=== PATIENT | female | born 1945 | race Caucasian/White ===

== ENCOUNTER 2016-03-18 09:20 | Outpatient (CLI) | payer OTHER, MEDICARE | END 2016-03-18 09:21 | disposition home or self-care (01) | DX: R11.2 Nausea with vomiting, unspecified (principal); Z99.2 Dependence on renal dialysis ==

== ENCOUNTER 2016-08-16 13:58 | Outpatient (CLI) | payer OTHER, MEDICARE | END 2016-08-16 13:59 | disposition home or self-care (01) | LOC: DI 13:58 | PROVIDERS: ATTEND Internal Medicine | DX: I48.2 Chronic atrial fibrillation (principal); I51.7 Cardiomegaly; I34.0 Nonrheumatic mitral (valve) insufficiency | CPT/HCPCS: 93306 ==

== ENCOUNTER 2016-10-24 12:57 | Outpatient (CLI) | payer OTHER, MEDICARE | END 2016-10-24 12:58 | disposition home or self-care (01) | LOC: LAB 12:57 | PROVIDERS: ATTEND Internal Medicine | DX: I48.91 Unspecified atrial fibrillation (principal) | CPT/HCPCS: 85610 ==

== ENCOUNTER 2016-10-31 11:31 | Outpatient (CLI) | payer OTHER, MEDICARE | END 2016-10-31 11:32 | disposition home or self-care (01) | LOC: LAB 11:31 | PROVIDERS: ATTEND Internal Medicine | DX: Z79.01 Long term (current) use of anticoagulants (principal) | CPT/HCPCS: 85610 ==

== ENCOUNTER 2016-11-07 11:39 | Outpatient (CLI) | payer OTHER, MEDICARE | END 2016-11-07 11:40 | disposition home or self-care (01) | LOC: LAB 11:39 | PROVIDERS: ATTEND Internal Medicine | DX: Z79.01 Long term (current) use of anticoagulants (principal) | CPT/HCPCS: 85610 ==

== ENCOUNTER 2016-11-15 09:55 | Outpatient (CLI) | payer OTHER, MEDICARE | END 2016-11-15 09:56 | disposition home or self-care (01) | LOC: LAB 09:55 | PROVIDERS: ATTEND Internal Medicine | DX: Z79.01 Long term (current) use of anticoagulants (principal) | CPT/HCPCS: 85610 ==

== ENCOUNTER 2016-12-13 09:55 | Outpatient (CLI) | payer OTHER, MEDICARE | END 2016-12-13 09:56 | disposition home or self-care (01) | LOC: LAB 09:55 | PROVIDERS: ATTEND Internal Medicine | DX: Z79.01 Long term (current) use of anticoagulants (principal) | CPT/HCPCS: 85610 ==

== ENCOUNTER 2016-12-27 11:54 | Outpatient (CLI) | payer OTHER, MEDICARE | END 2016-12-27 11:55 | disposition home or self-care (01) | LOC: LAB 11:54 | PROVIDERS: ATTEND Internal Medicine | DX: Z79.01 Long term (current) use of anticoagulants (principal) | CPT/HCPCS: 85610 ==

== ENCOUNTER 2017-01-24 12:17 | Outpatient (CLI) | payer MEDICARE, OTHER | END 2017-01-24 12:18 | disposition home or self-care (01) | LOC: LAB 12:17 | PROVIDERS: ATTEND Internal Medicine | DX: Z79.01 Long term (current) use of anticoagulants (principal) | CPT/HCPCS: 85610 ==

== ENCOUNTER 2017-01-31 11:21 | Outpatient (CLI) | payer OTHER, MEDICARE | END 2017-01-31 11:22 | disposition home or self-care (01) | LOC: LAB 11:21 | PROVIDERS: ATTEND Internal Medicine | DX: Z79.01 Long term (current) use of anticoagulants (principal) | CPT/HCPCS: 85610 ==

== ENCOUNTER 2017-02-07 09:54 | Outpatient (CLI) | payer OTHER, MEDICARE | END 2017-02-07 09:55 | disposition home or self-care (01) | LOC: LAB 09:54 | PROVIDERS: ATTEND Internal Medicine | DX: Z79.01 Long term (current) use of anticoagulants (principal) | CPT/HCPCS: 85610 ==

== ENCOUNTER 2017-02-14 10:48 | Outpatient (CLI) | payer OTHER, MEDICARE | END 2017-02-14 10:49 | disposition home or self-care (01) | LOC: LAB 10:48 | PROVIDERS: ATTEND Internal Medicine | DX: Z79.01 Long term (current) use of anticoagulants (principal) | CPT/HCPCS: 85610 ==

== ENCOUNTER 2017-03-15 08:22 | Outpatient (CLI) | payer MEDICARE, OTHER | END 2017-03-15 08:23 | disposition home or self-care (01) | LOC: LAB 08:22 | PROVIDERS: ATTEND Internal Medicine | DX: Z79.01 Long term (current) use of anticoagulants (principal) | CPT/HCPCS: 85610 ==

== ENCOUNTER 2017-03-22 08:22 | Outpatient (CLI) | payer MEDICARE, OTHER | END 2017-03-22 08:23 | disposition home or self-care (01) | LOC: LAB 08:22 | PROVIDERS: ATTEND Internal Medicine | DX: Z79.01 Long term (current) use of anticoagulants (principal) | CPT/HCPCS: 85610 ==

== ENCOUNTER 2017-03-29 08:16 | Outpatient (CLI) | payer MEDICARE, OTHER | END 2017-03-29 08:17 | disposition home or self-care (01) | LOC: LAB 08:16 | PROVIDERS: ATTEND Internal Medicine | DX: Z79.01 Long term (current) use of anticoagulants (principal) | CPT/HCPCS: 85610 ==

== ENCOUNTER 2017-04-28 07:48 | Outpatient (CLI) | payer MEDICARE, OTHER | END 2017-04-28 07:49 | disposition home or self-care (01) | LOC: LAB 07:48 | PROVIDERS: ATTEND Internal Medicine | DX: Z79.01 Long term (current) use of anticoagulants (principal); I48.91 Unspecified atrial fibrillation | CPT/HCPCS: 85610 ==

== ENCOUNTER 2017-05-25 11:31 | Outpatient (CLI) | payer MEDICARE, OTHER ==
[2017-05-25 12:06] LABS: PT - PROTHROMBIN TIME 55.5 secs (9.9-12.6)
[2017-05-25 12:14] LABS: INR 5.2 (0.8-1.2)
== END 2017-05-25 11:32 | disposition home or self-care (01) ==
LOC: LAB 11:31
PROVIDERS: ATTEND Internal Medicine
DX: Z79.01 Long term (current) use of anticoagulants (principal)
CPT/HCPCS: 36415; 85610

== ENCOUNTER 2017-06-01 15:52 | Outpatient (CLI) | payer MEDICARE, OTHER | END 2017-06-01 15:53 | disposition home or self-care (01) | LOC: LAB 15:52 | PROVIDERS: ATTEND Internal Medicine | DX: Z79.01 Long term (current) use of anticoagulants (principal) | CPT/HCPCS: 85610 ==

== ENCOUNTER 2017-06-07 11:03 | Outpatient (CLI) | payer MEDICARE, OTHER | END 2017-06-07 11:04 | disposition home or self-care (01) | LOC: LAB 11:03 | PROVIDERS: ATTEND Internal Medicine | DX: Z79.01 Long term (current) use of anticoagulants (principal) | CPT/HCPCS: 85610 ==

== ENCOUNTER 2017-06-21 14:37 | Outpatient (CLI) | payer MEDICARE, OTHER | END 2017-06-21 14:38 | disposition home or self-care (01) | LOC: LAB 14:37 | PROVIDERS: ATTEND Internal Medicine | DX: Z79.01 Long term (current) use of anticoagulants (principal) | CPT/HCPCS: 85610 ==

== ENCOUNTER 2017-07-06 13:38 | Outpatient (CLI) | payer MEDICARE, OTHER | END 2017-07-06 13:39 | disposition home or self-care (01) | LOC: LAB 13:38 | PROVIDERS: ATTEND Internal Medicine | DX: Z79.01 Long term (current) use of anticoagulants (principal) | CPT/HCPCS: 85610 ==

== ENCOUNTER 2017-07-20 10:54 | Outpatient (CLI) | payer MEDICARE, OTHER | END 2017-07-20 10:55 | disposition home or self-care (01) | LOC: LAB 10:54 | PROVIDERS: ATTEND Internal Medicine | DX: Z79.01 Long term (current) use of anticoagulants (principal) | CPT/HCPCS: 85610 ==

== ENCOUNTER 2017-08-02 08:37 | Outpatient (CLI) | payer MEDICARE, OTHER ==
[2017-08-02 09:38] LABS: INR 1.6 (0.8-1.2); PT - PROTHROMBIN TIME 17.6 secs (9.9-12.6)
[2017-08-02 11:53] LABS: ALBUMIN 3.4 g/dL (3.2-5.5); ALBUMIN/GLOBULIN RATIO 1.2 (1.0-2.2); ALKALINE PHOSPHATASE 71 IU/L (42-121); ALT ALANINE AMINOTRANSFERASE 24 IU/L (10-60); AST ASPARTATE AMINOTRANSFERASE 26 IU/L (10-42); BILIRUBIN,TOTAL 0.6 mg/dL (0.2-1.0); BUN - BLOOD UREA NITROGEN 60 mg/dL (6-20); CALCIUM 8.4 mg/dL (8.5-10.3); CARBON DIOXIDE - CO2 21 mmol/L (21-32); CHLORIDE 104 mmol/L (101-111); CHOL/HDL RATIO 2.2 (<4.4); CHOLESTEROL 162 mg/dL; CREATININE 9.8 mg/dL (0.4-1.0); GFR - MDRD 4 (>89); GLUCOSE 95 mg/dL (70-100); HDL CHOLESTEROL 73 mg/dL; LDL CHOLESTEROL,CALCULATED 71 mg/dL; SODIUM 137 mmol/L (135-145); TOTAL PROTEIN 6.3 g/dL (6.7-8.2); VLDL CHOLESTEROL 18 mg/dL
== END 2017-08-02 08:38 | disposition home or self-care (01) ==
LOC: LAB 08:37
PROVIDERS: ATTEND Physician Assistant
DX: N19 Unspecified kidney failure (principal); I10 Essential (primary) hypertension; R60.0 Localized edema; E78.5 Hyperlipidemia, unspecified; Z79.01 Long term (current) use of anticoagulants; Z13.220 Encounter for screening for lipoid disorders
CPT/HCPCS: 36415; 80053; 80061; 83721; 83880; 85610

== ENCOUNTER 2017-08-10 02:21 | Emergency (ER) | payer MEDICARE, OTHER ==
[2017-08-10] MEDS ORDERED: TRANEXAMIC ACID 1,000 MG/10 ML VIAL NAS STA (02:33)
--- NOTE | 2017-08-10 02:37 | ED Physician Documentation ---
History of Present Illness - Stated complaint Stated Complaint: NOSE BLEED - History obtained from History obtained from: Patient, Family - History of Present Illness Timing: How many hours ago (1) Pain level max: 0 Pain level now: 0 - Additonal information Additional information: Patient is a 72-year-old female who takes warfarin for atrial fibrillation and is also on hemodialysis who presents to the emergency department with a nosebleed for the past hour. Bleeding out of the right nare. She states that she has daily nosebleeds and that this is not uncommon for her, but this one is worse than usual. 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 - Present Medications Home Medications: Ambulatory Orders Medication Instructions Recorded Confirmed Albuterol Sulfate [Ventolin Hfa] 2 puffs INH Q4-6H PRN 07/17/13 03/21/14 Atenolol [Tenormin] 25 mg PO BID 07/17/13 03/21/14 Calcitriol [Rocaltrol] 0.5 mcg PO DAILY 07/17/13 03/21/14 Ferrous Fumarate 324 mg PO BID 07/17/13 03/21/14 Fexofenadine HCl [Yolanda Allergy] 180 mg PO DAILY PRN 07/17/13 03/21/14 Fluticasone [Flonase] 1 sprays JODIE DAILY PRN 07/17/13 03/21/14 Hydralazine HCl 25 mg PO TID 07/17/13 03/21/14 Pravastatin Sodium 40 mg PO HS 07/17/13 03/21/14 - Allergies Allergies/Adverse Reactions: Allergies Allergy/AdvReac Type Severity Reaction Status Date / Time Penicillins Allergy Rash Verified 09/20/13 09:19 PD ED PE NORMAL - Vitals Vital signs reviewed: Yes - General General: Alert and oriented X 3, No acute distress - HEENT HEENT: Moist mucous membranes, Other (epistaxis to the R nare. unable to visualize source of bleeding.) - Neck Neck: Supple, no meningeal sign - Derm Derm: Warm and dry - Neuro Neuro: Alert and oriented X 3 Results - Vitals Vitals: Vital Signs - 24 hr 08/10/17 08/10/17 08/10/17 02:30 03:00 03:26 Temperature 36.7 C Heart Rate 88 Respiratory 18 20 Rate Blood Pressure 198/99 H O2 Saturation 10 L 100 08/10/17 08/10/17 04:14 04:38 Temperature Heart Rate 71 71 Respiratory 17 16 Rate Blood Pressure 200/97 H 197/94 H O2 Saturation 100 99 Oxygen O2 Source Room air - Labs Labs: Laboratory Tests 08/10/17 02:40 Whole Blood INR 3.0 H Procedures - Epistaxis Site: Right, Cannot determine Preparation: Clots removed, Afrin, Lidocaine, Clamp / pressure applied Treatment: Anterior rhinorocket Other: Observed - no bleeding, Pt tolerated well, O2 sat WNL, Antibiotics prescribed PD MEDICAL DECISION MAKING - ED course Complexity details: reviewed results, re-evaluated patient, considered differential, d/w patient, d/w family ED course: Patient is a 72-year-old female with a right nare nosebleed tonight. Initially Afrin and tranexamic acid were utilized, however she continued to bleed, therefore lidocaine with epinephrine and followed by an anterior Rhino Rocket was used. Bleeding resolved. INR is supratherapeutic and will have her hold her warfarin for the next 24 hours. We will have her follow-up with her doctor in 24 hours to remove the nasal packing. Patient counseled regarding signs and symptoms for which I believe and urgent re-evaluation would be necessary. Patient with good understanding of and agreement to plan and is comfortable going home at this time This document was made in part using voice recognition software. While efforts are made to proofread this document, sound alike and grammatical errors may occur. Departure - Departure Disposition: 01 Home, Self Care Clinical Impression: Epistaxis, Supratherapeutic INR Condition: Good Instructions: ED Nosebleed Follow-Up: oJse Deleon MD [Primary Care Provider] - Tomorrow Comments: Hold your warfarin today. Follow up with Dr. Deleon's office on Monday to have your packing removed or return here.
[2017-08-10] MEDS ORDERED: OXYMETAZOLINE NASAL SPRAY NAS STA (02:45)
[2017-08-10] MEDS ORDERED: LIDOCAINE 1%-EPI 1:100000 20 ML MDV TOP ONE (03:06)
[2017-08-10] MEDS ORDERED: LIDOCAINE 1%-EPI 1:100000 30 ML MDV ONE (03:20)
[2017-08-10] MEDS ORDERED: HYDROcod/ACETAM 5/325 MG TABLET PO STA (03:39)
[2017-08-10] MEDS ORDERED: hydrALAZINE 25 MG TABLET PO STA (04:12)
[2017-08-10 05:21] VITALS: BP 186/80
== END 2017-08-10 05:35 | disposition home or self-care (01) ==
LOC: ED 02:21
DX: R04.0 Epistaxis (principal); I48.91 Unspecified atrial fibrillation; Z99.2 Dependence on renal dialysis; Z79.01 Long term (current) use of anticoagulants; R79.1 Abnormal coagulation profile; I10 Essential (primary) hypertension
CPT/HCPCS: 30901; 85610; 99283; A9270

== ENCOUNTER 2017-08-21 15:26 | Outpatient (CLI) | payer MEDICARE, OTHER ==
--- NOTE | 2017-08-23 09:19 | DEXA Report ---
Procedure Date: 08/21/2017 Accession Number: [id number] / [id number] Procedure: DEX - Dexa Spine and/or Hip CPT Code: FULL RESULT: CLINICAL INDICATION: ENCOUNTER FOR SCREENING FOR OSTEOPOROSIS TECHNIQUE: Dual energy x-ray absorptiometry (DXA) was performed on a [email or web address] System. Regions measured are the AP Spine, femoral neck, and if needed forearm. COMPARISON: None. In accordance with the International Society for Clinical Densitometry (ISCD) guidelines, data from previous exams may be reanalyzed using current recommendations and techniques. This is done to allow a more accurate basis for comparison with the current study. FINDINGS: The data for the lumbar spine is as follows: BMD (g/cm/cm) T-SCORE Z-SCORE REGION L1 0.810 -2.7 -0.7 L2 0.755 -3.7 -1.8 L3 0.914 -2.4 -0.4 L4 0.903 -2.5 -0.5 TOTAL 0.851 -2.7 -0.8 NOTE: All evaluable vertebrae are used for classification The data for the hip is as follows: BMD (g/cm/cm) T-SCORE Z-SCORE REGION Neck 0.635 -2.9 -0.9 TOTAL 0.589 -3.3 -1.5 NOTE: The femoral neck or total proximal femur, whichever is lowest, is used for classification. IMPRESSION: THE WHO CLASSIFICATION BASED ON THE INTERNATIONAL REFERENCE STANDARD IS OSTEOPOROSIS. THE FRACTURE RISK IS HIGH. RECOMMENDATION: Patients with diagnosis of osteoporosis or osteopenia should have regular bone mineral density assessment. For those eligible for Medicare, routine testing is allowed once every 2 years. Testing frequency can be increased for patients who have rapidly progressing disease or for those who are receiving medical therapy to restore bone mass. COMMENT: World Health Organization (WHO) definitions for osteoporosis and osteopenia: NORMAL BMD: T-score at -1.0 or higher, fracture risk is low OSTEOPENIA BMD: T-score between -1.0 and -2.5, fracture risk is increased. OSTEOPOROSIS BMD: T-score at -2.5 or lower, fracture risk is high. National Osteoporosis Foundation recommends: 1. Obtain adequate dietary calcium (at least 1200 mg per day) and vitamin D (400-800 international units per day). 2. Participate, as appropriate, in regular weightbearing and muscle-strengthening exercise. 3. Avoid tobacco use and reduce alcohol and caffeine intake. 4. For more detailed information see the website at www.NOF.org.
== END 2017-08-21 15:27 | disposition home or self-care (01) ==
LOC: DI 15:26
PROVIDERS: ATTEND Physician Assistant
DX: Z13.820 Encounter for screening for osteoporosis (principal); M81.0 Age-related osteoporosis without current pathological fracture; Z78.0 Asymptomatic menopausal state
CPT/HCPCS: 77080

== ENCOUNTER 2017-08-21 15:27 | Outpatient (CLI) | payer MEDICARE, OTHER ==
--- NOTE | 2017-08-23 13:22 | Mammography Report ---
Procedure Date: 08/21/2017 Accession Number: [id number] / [id number] Procedure: ANTONIO - Screening Mammo Dig Bilat CPT Code: FULL RESULT: EXAM: Screening Mammo Dig Bilat DATE: 08/21/2017 4:30 PM CLINICAL HISTORY: 72-year-old with history of benign left breast biopsy for screening COMPARISON: 06/22/2015, 05/20/2014, 05/08/2013, 03/22/2012, 02/12/2011, 01/20/2010 TECHNIQUE: Bilateral CC and MLO views were obtained. FINDINGS: Breasts demonstrate scattered fibroglandular densities bilaterally. Coarse and punctate, typically benign calcifications are present. Postbiopsy changes in the left upper outer quadrant are stable. No suspicious masses, clustered microcalcifications, or regions of architectural distortion are identified. IMPRESSION: Benign findings RECOMMENDATION: Routine annual screening unless otherwise clinically indicated. BIRADS CATEGORY 2: Benign findings STANDARD QUALIFYING STATEMENTS: 1. This examination was reviewed with the aid of Computer-Aided Detection (CAD). 2. A negative or benign imaging report should not delay biopsy if clinically suspicious findings are present. Consider surgical consultation if warrented. More than 5% of cancers are not identified by imaging. 3. Dense breasts may obscure an underlying neoplasm.
== END 2017-08-21 15:28 | disposition home or self-care (01) ==
LOC: DI 15:27
PROVIDERS: ATTEND Physician Assistant
DX: Z12.31 Encounter for screening mammogram for malignant neoplasm of breast (principal)
CPT/HCPCS: 77067

== ENCOUNTER 2017-08-30 12:30 | Outpatient (CLI) | payer MEDICARE, OTHER | END 2017-08-30 12:31 | disposition home or self-care (01) | LOC: LAB 12:30 | PROVIDERS: ATTEND Internal Medicine | DX: Z79.01 Long term (current) use of anticoagulants (principal) | CPT/HCPCS: 85610 ==

== ENCOUNTER 2017-09-06 11:01 | Outpatient (CLI) | payer MEDICARE, OTHER | END 2017-09-06 11:02 | disposition home or self-care (01) | LOC: LAB 11:01 | PROVIDERS: ATTEND Internal Medicine | DX: Z79.01 Long term (current) use of anticoagulants (principal) | CPT/HCPCS: 85610 ==

== ENCOUNTER 2017-09-20 12:32 | Outpatient (CLI) | payer MEDICARE, OTHER | END 2017-09-20 12:33 | disposition home or self-care (01) | LOC: LAB 12:32 | PROVIDERS: ATTEND Internal Medicine | DX: Z79.01 Long term (current) use of anticoagulants (principal) | CPT/HCPCS: 85610 ==

== ENCOUNTER 2017-10-03 15:07 | Outpatient (CLI) | payer MEDICARE, OTHER | END 2017-10-03 15:08 | disposition home or self-care (01) | LOC: LAB 15:07 | PROVIDERS: ATTEND Internal Medicine | DX: Z79.01 Long term (current) use of anticoagulants (principal) | CPT/HCPCS: 85610 ==

== ENCOUNTER 2017-10-26 13:24 | Outpatient (CLI) | payer MEDICARE, OTHER | END 2017-10-26 13:25 | disposition home or self-care (01) | LOC: LAB 13:24 | PROVIDERS: ATTEND Internal Medicine | DX: Z79.01 Long term (current) use of anticoagulants (principal) | CPT/HCPCS: 85610 ==

== ENCOUNTER 2017-11-22 12:04 | Outpatient (CLI) | payer MEDICARE, OTHER | END 2017-11-22 12:05 | disposition home or self-care (01) | LOC: LAB 12:04 | PROVIDERS: ATTEND Internal Medicine | DX: Z79.01 Long term (current) use of anticoagulants (principal) | CPT/HCPCS: 85610 ==

== ENCOUNTER 2017-12-07 11:10 | Outpatient (CLI) | payer MEDICARE, OTHER | END 2017-12-07 11:11 | disposition home or self-care (01) | LOC: LAB 11:10 | PROVIDERS: ATTEND Internal Medicine | DX: Z79.01 Long term (current) use of anticoagulants (principal) | CPT/HCPCS: 85610 ==

== ENCOUNTER 2017-12-09 12:06 | Outpatient (CLI) | payer MEDICARE, OTHER ==
--- NOTE | 2017-12-09 14:28 | XRAY Report ---
Reason: COUGH Procedure Date: 12/09/2017 Accession Number: [id number] / [id number] Procedure: XR - Chest 2 View X-Ray CPT Code: 12987 FULL RESULT: EXAM: CHEST RADIOGRAPHY EXAM DATE: 12/09/2017 12:23 PM. CLINICAL HISTORY: COUGH. COMPARISON: CHEST 2 VIEW PA/LAT 08/17/2015 4:15 PM. TECHNIQUE: 2 views. FINDINGS: Lungs/Pleura: No focal opacities evident. No pleural effusion. No pneumothorax. Normal volumes. Mediastinum: Heart and mediastinal contours are unremarkable. Mild aortic calcification. Other: None. IMPRESSION: Normal 2-view chest radiography. RADIA
== END 2017-12-09 12:07 | disposition home or self-care (01) ==
LOC: DI 12:06
PROVIDERS: ATTEND Internal Medicine
DX: R05 Cough (principal)
CPT/HCPCS: 71046

== ENCOUNTER 2017-12-21 11:00 | Outpatient (CLI) | payer MEDICARE, OTHER | END 2017-12-21 11:01 | disposition home or self-care (01) | LOC: LAB 11:00 | PROVIDERS: ATTEND Internal Medicine | DX: Z79.01 Long term (current) use of anticoagulants (principal) | CPT/HCPCS: 85610 ==

== ENCOUNTER 2018-01-04 14:17 | Outpatient (CLI) | payer MEDICARE, OTHER | END 2018-01-04 14:18 | disposition home or self-care (01) | LOC: LAB 14:17 | PROVIDERS: ATTEND Internal Medicine | DX: Z79.01 Long term (current) use of anticoagulants (principal) | CPT/HCPCS: 85610 ==

== ENCOUNTER 2018-01-10 12:08 | Outpatient (CLI) | payer MEDICARE, OTHER | END 2018-01-10 12:09 | disposition home or self-care (01) | LOC: LAB 12:08 | PROVIDERS: ATTEND Internal Medicine | DX: Z79.01 Long term (current) use of anticoagulants (principal) | CPT/HCPCS: 85610 ==

== ENCOUNTER 2018-01-18 13:24 | Outpatient (CLI) | payer MEDICARE, OTHER ==
[2018-01-18 14:12] LABS: INR 1.6 (0.8-1.2); PT - PROTHROMBIN TIME 17.7 secs (9.9-12.6)
== END 2018-01-18 13:25 | disposition home or self-care (01) ==
LOC: LAB 13:24
PROVIDERS: ATTEND Internal Medicine
DX: Z79.01 Long term (current) use of anticoagulants (principal)
CPT/HCPCS: 36415; 85610

== ENCOUNTER 2018-01-30 13:46 | Outpatient (CLI) | payer MEDICARE, OTHER | END 2018-01-30 13:47 | disposition home or self-care (01) | LOC: LAB 13:46 | PROVIDERS: ATTEND Internal Medicine | DX: Z79.01 Long term (current) use of anticoagulants (principal) | CPT/HCPCS: 85610 ==

== ENCOUNTER 2018-02-14 13:06 | Outpatient (CLI) | payer MEDICARE, OTHER | END 2018-02-14 13:07 | disposition home or self-care (01) | LOC: LAB 13:06 | PROVIDERS: ATTEND Internal Medicine | DX: Z79.01 Long term (current) use of anticoagulants (principal) | CPT/HCPCS: 85610 ==

== ENCOUNTER 2018-03-01 13:06 | Outpatient (CLI) | payer MEDICARE, OTHER | END 2018-03-01 13:07 | disposition home or self-care (01) | LOC: LAB 13:06 | PROVIDERS: ATTEND Internal Medicine | DX: Z79.01 Long term (current) use of anticoagulants (principal) | CPT/HCPCS: 85610 ==

== ENCOUNTER 2018-03-14 12:12 | Outpatient (CLI) | payer MEDICARE, OTHER | END 2018-03-14 12:13 | disposition home or self-care (01) | LOC: LAB 12:12 | PROVIDERS: ATTEND Internal Medicine | DX: Z79.01 Long term (current) use of anticoagulants (principal) | CPT/HCPCS: 85610 ==

== ENCOUNTER 2018-03-28 10:08 | Outpatient (CLI) | payer MEDICARE, OTHER | END 2018-03-28 10:09 | disposition home or self-care (01) | LOC: LAB 10:08 | PROVIDERS: ATTEND Internal Medicine | DX: Z79.01 Long term (current) use of anticoagulants (principal) | CPT/HCPCS: 85610 ==

== ENCOUNTER 2018-03-31 09:49 | Outpatient (CLI) | payer MEDICARE, OTHER ==
--- NOTE | 2018-04-01 14:12 | CT Report ---
Reason: ACUTE RHINOSINUSITIS,NASAL OBSTRUCTION Procedure Date: 03/31/2018 Accession Number: [id number] / [id number] Procedure: CT - Sinuses CPT Code: FULL RESULT: EXAM: CT SINUS WITHOUT CONTRAST COMPARISON: 08/03/2015. CLINICAL HISTORY: Acute rhinosinusitis, nasal obstruction. TECHNIQUE: Axial images were acquired of the face and sinuses without intravenous contrast. Coronal and Sagittal reconstructions are created from source data. In accordance with CT protocol optimization, one or more of the following dose reduction techniques were utilized for this exam: automated exposure control, adjustment of mA and/or KV based on patient size, or use of iterative reconstructive technique. FINDINGS: Visualized intracranial content shows no acute abnormality. There is volume loss. Right mastoid is clear. Right middle ear is clear. Left middle ear is clear. There are a few opacified left mastoid air cells inferiorly, may reflect upper respiratory tract infection. Clinical correlation suggested. No nasopharyngeal mass identified. Temporomandibular joints are normally located. Zygomatic arches are intact. Air-fluid levels present in the left maxillary sinus (3, 47). Clinical correlation with acute left maxillary sinusitis suggested. Rightward bowing of the bony nasal septum is noted. Clinical correlation with decreased right-sided nasal airflow suggested. Nasofrontal ducts well demonstrated (3, 64). No evidence of acute or chronic sphenoid sinusitis. Nasofrontal ducts are open and the frontal sinuses are well aerated. A few scattered opacified ethmoid air cells are noted. Orbital floors are intact. Orbital roofs are intact. Medial and lateral orbital mcgraw are intact. Maxillary sinus infundibula are open (8, 43; 44). IMPRESSION: Rightward bowing of the bony nasal septum may account for perception of nasal obstruction. There is fluid in the left maxillary sinus and left mastoid air cells. Clinical correlation with upper respiratory tract infection suggested.
== END 2018-03-31 09:50 | disposition home or self-care (01) ==
LOC: DI 09:49
PROVIDERS: ATTEND Otolaryngology
DX: J01.90 Acute sinusitis, unspecified (principal); J34.89 Other specified disorders of nose and nasal sinuses
CPT/HCPCS: 70486

== ENCOUNTER 2018-04-18 08:00 | Outpatient (CLI) | payer MEDICARE, OTHER ==
[2018-04-18 12:21] LABS: BASOPHILS # (AUTO) 0.1 10^3/uL (0.0-0.1); BASOPHILS % (AUTO) 1.4 %; EOSINOPHILS # (AUTO) 0.1 10^3/uL (0.0-0.7); HGB - HEMOGLOBIN 8.1 g/dL (12.0-16.0); LYMPHOCYTES # (AUTO) 0.7 10^3/uL (1.5-3.5); LYMPHOCYTES % (AUTO) 13.2 %; MEAN CORPUSCULAR HEMOGLOBIN 31.7 pg (27.0-31.0); MEAN CORPUSCULAR HGB CONC 33.7 g/dL (32.0-36.0); MEAN CORPUSCULAR VOLUME 94.2 fL (81.0-99.0); MEAN PLATELET VOLUME 10.2 fL (7.9-10.8); MONOCYTES # (AUTO) 0.4 10^3/uL (0.0-1.0); NEUTROPHILS # (AUTO) 4.1 10^3/uL (1.5-6.6); NEUTROPHILS % (AUTO) 76.4 %; PLT - PLATELET COUNT 107 10^3/uL (130-450); RED BLOOD COUNT 2.55 10^6/uL (4.20-5.40); RED CELL DISTRIBUTION WIDTH 14.2 % (12.0-15.0); WHITE BLOOD COUNT 5.4 x10^3/uL (4.8-10.8)
[2018-04-18 12:41] LABS: ALBUMIN/GLOBULIN RATIO 1.2 (1.0-2.2); BILIRUBIN,TOTAL 0.8 mg/dL (0.2-1.0); CALCIUM 8.8 mg/dL (8.5-10.3); TOTAL PROTEIN 5.6 g/dL (6.7-8.2)
[2018-04-18 12:42] LABS: CREATININE 9.8 mg/dL (0.4-1.0)
== END 2018-04-18 23:59 | disposition home or self-care (01) ==
LOC: LAB.R 08:00
PROVIDERS: ATTEND Nurse Practitioner Primary Care
DX: I50.9 Heart failure, unspecified (principal); R05 Cough; N19 Unspecified kidney failure
CPT/HCPCS: 80053; 83880; 85025

== ENCOUNTER 2018-04-23 08:00 | Outpatient (CLI) | payer MEDICARE, OTHER ==
[2018-04-23 15:39] LABS: BASOPHILS % (AUTO) 0.5 %; EOSINOPHILS % (AUTO) 0.3 %; LYMPHOCYTES # (AUTO) 0.4 10^3/uL (1.5-3.5); LYMPHOCYTES % (AUTO) 6.2 %; MEAN CORPUSCULAR HEMOGLOBIN 31.4 pg (27.0-31.0); MEAN CORPUSCULAR HGB CONC 33.2 g/dL (32.0-36.0); MEAN CORPUSCULAR VOLUME 94.4 fL (81.0-99.0); MEAN PLATELET VOLUME 10.4 fL (7.9-10.8); MONOCYTES # (AUTO) 0.4 10^3/uL (0.0-1.0); MONOCYTES % (AUTO) 7.1 %; NEUTROPHILS # (AUTO) 4.9 10^3/uL (1.5-6.6); NEUTROPHILS % (AUTO) 85.9 %; PLT - PLATELET COUNT 117 10^3/uL (130-450); RED BLOOD COUNT 2.13 10^6/uL (4.20-5.40); RED CELL DISTRIBUTION WIDTH 14.4 % (12.0-15.0); WHITE BLOOD COUNT 5.7 x10^3/uL (4.8-10.8)
[2018-04-23 15:40] LABS: PT - PROTHROMBIN TIME 106.9 secs (9.9-12.6)
[2018-04-23 16:01] LABS: ALBUMIN/GLOBULIN RATIO 1.2 (1.0-2.2); BILIRUBIN,TOTAL 0.7 mg/dL (0.2-1.0); CALCIUM 9.1 mg/dL (8.5-10.3); INR 9.8 (0.8-1.2); TOTAL PROTEIN 5.6 g/dL (6.7-8.2)
[2018-04-23 16:02] LABS: CREATININE 11.9 mg/dL (0.4-1.0); HGB - HEMOGLOBIN 6.7 g/dL (12.0-16.0)
== END 2018-04-23 23:59 | disposition home or self-care (01) ==
LOC: LAB.R 08:00
PROVIDERS: ATTEND Nurse Practitioner Primary Care
DX: R10.30 Lower abdominal pain, unspecified (principal); I50.9 Heart failure, unspecified; N19 Unspecified kidney failure; D63.1 Anemia in chronic kidney disease; Z79.01 Long term (current) use of anticoagulants
CPT/HCPCS: 80053; 83690; 83880; 85025; 85610

== ENCOUNTER 2018-04-23 16:38 | Emergency (ER) | payer MEDICARE, OTHER ==
[2018-04-23] MEDS ORDERED: PHYTONADIONE 10 MG/ML AMP SUBQ STA (17:06)
--- NOTE | 2018-04-23 17:08 | ED Physician Documentation ---
PD HPI ABD PAIN - Stated complaint Stated Complaint: ABD SWELLING/SENT BY DOC - Chief complaint Chief Complaint: Abd Pain - History obtained from History obtained from: Patient, Family, Other (ERNESTO Ellis called me [employer] INTERN) - History of Present Illness Timing - onset: Other (This is a 73-year-old woman with atrial fibrillation on warfarin and renal failure who does home peritoneal dialysis who 2 nights ago wa s coughing and developed pain in the left lower abdomen which became more severe during subsequent bouts of coughing over the last day. She was seen in the office today noted to have a hemoglobin drop to 6.1 and an INR of greater than 9 with abdominal wall bruising.) Review of Systems Ten Systems: 10 systems reviewed and negative Constitutional: denies: Fever, Chills Cardiac: denies: Chest pain / pressure, Palpitations Respiratory: denies: Dyspnea, Cough GI: reports: Abdominal Pain. 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 - Present Medications Home Medications: Ambulatory Orders Medication Instructions Recorded Confirmed Calcitriol [Rocaltrol] 0.5 mcg PO DAILY 07/17/13 04/23/18 Fexofenadine HCl [Yolanda Allergy] 180 mg PO DAILY PRN 07/17/13 04/23/18 Fluticasone [Flonase] 1 sprays JODIE DAILY PRN 07/17/13 04/23/18 RX: Albuterol Sulfate [Ventolin 2 puffs INH Q4-6H PRN 07/17/13 04/23/18 Hfa] RX: Hydralazine HCl 25 mg PO TID 07/17/13 04/23/18 RX: Pravastatin Sodium 40 mg PO HS 07/17/13 04/23/18 Doxazosin [Cardura] 4 mg PO DAILY 04/23/18 04/23/18 RX: Metoprolol Succinate 25 mg PO DAILY 04/23/18 04/23/18 - Allergies Allergies/Adverse Reactions: Allergies Allergy/AdvReac Type Severity Reaction Status Date / Time Penicillins Allergy Rash Verified 04/23/18 16:48 PD ED PE NORMAL - Vitals Vital signs reviewed: Yes - General General: Alert and oriented X 3, No acute distress - HEENT HEENT: PERRL, EOMI - Neck Neck: Supple, no meningeal sign, No bony TTP - Cardiac Cardiac: RRR, No murmur - Respiratory Respiratory: No respiratory distress, Clear bilaterally - Abdomen Abdomen: Other (She has lower abdominal wall bruising. The peritoneal dialysis catheter does not have any blood in the tubing. She is quite tender to the low abdomen.) - Back Back: No CVA TTP, No spinal TTP - Derm Derm: Normal color, Warm and dry - Extremities Extremities: No edema, No calf tenderness / cord - Neuro Neuro: Alert and oriented X 3, Normal speech Results - Vitals Vitals: Vital Signs - 24 hr 04/23/18 04/23/18 04/23/18 16:46 17:12 17:30 Temperature 36.4 C L Heart Rate 70 69 76 Respiratory 20 16 16 Rate Blood Pressure 155/62 H 144/64 H 179/79 H O2 Saturation 99 98 98 04/23/18 04/23/18 04/23/18 18:00 18:30 18:42 Temperature 36.7 C 36.7 C Heart Rate 71 72 71 Respiratory 16 18 16 Rate Blood Pressure 180/86 H 190/76 H 166/77 H O2 Saturation 97 98 04/23/18 04/23/18 04/23/18 19:00 19:22 19:30 Temperature 36.4 C L 36.5 C Heart Rate 74 73 72 Respiratory 16 16 17 Rate Blood Pressure 179/79 H 190/76 H 189/94 H O2 Saturation 98 98 04/23/18 04/23/18 04/23/18 19:35 19:49 20:00 Temperature 36.7 C 36.5 C Heart Rate 74 72 72 Respiratory 16 17 16 Rate Blood Pressure 179/79 H 194/79 H 190/88 H O2 Saturation 97 04/23/18 04/23/18 04/23/18 20:06 20:30 20:56 Temperature 36.4 C L 37 C Heart Rate 70 71 71 Respiratory 16 16 16 Rate Blood Pressure 186/94 H 196/83 H 196/83 H O2 Saturation 97 04/23/18 21:28 Temperature Heart Rate 71 Respiratory 17 Rate Blood Pressure 190/77 H O2 Saturation 98 Oxygen O2 Source Room air - Labs Labs: Laboratory Tests 04/23/18 04/23/18 04/23/18 17:05 17:05 17:05 WBC 5.7 RBC 2.06 L Hgb 6.3 L* Hct 19.7 L* MCV 95.6 MCH 30.8 MCHC 32.2 RDW 14.1 Plt Count 117 L MPV 10.0 Neut # (Auto) 4.8 Lymph # (Auto) 0.5 L Piatt # (Auto) 0.3 Eos # (Auto) 0.0 Baso # (Auto) 0.0 Absolute Nucleated RBC 0.00 Nucleated RBC % 0.0 PT 112.3 H INR > 10.0 H* Sodium 136 Potassium 5.1 H Chloride 95 L Carbon Dioxide 27 Anion Gap 14.0 H BUN 60 H Creatinine 12.1 H* Estimated GFR (MDRD) 3 L Glucose 136 H Calcium 9.0 Total Bilirubin 1.0 AST 29 ALT 16 Alkaline Phosphatase 51 Total Protein 5.3 L Albumin 3.0 L Globulin 2.3 Albumin/Globulin Ratio 1.3 Lipase 31 Blood Type Antibody Screen Crossmatch IS Only 04/23/18 04/23/18 04/23/18 17:05 20:55 20:55 WBC RBC Hgb 8.1 L Hct 24.3 L MCV MCH MCHC RDW Plt Count MPV Neut # (Auto) Lymph # (Auto) Piatt # (Auto) Eos # (Auto) Baso # (Auto) Absolute Nucleated RBC Nucleated RBC % PT 38.7 H INR 3.5 H Sodium Potassium Chloride Carbon Dioxide Anion Gap BUN Creatinine Estimated GFR (MDRD) Glucose Calcium Total Bilirubin AST ALT Alkaline Phosphatase Total Protein Albumin Globulin Albumin/Globulin Ratio Lipase Blood Type A POSITIVE Antibody Screen NEGATIVE Crossmatch IS Only See Detail - Rads (name of study) CT A/P Radiology: EMP read contemporaneously (Subacute appearing left rectus abdominis muscle hematoma measuring 75 x 49 x 140 mm.) PD MEDICAL DECISION MAKING - ED course ED course: This is a 73-year-old woman on home peritoneal dialysis who presents with abdominal pain in the left lower quadrant with low H&H and high INR. CT imaging and labs suggest that her INR was high and then developed a spontaneous rectus sheath hematoma which looks subacute on CT. The patient was very against admission or transfer and wanted to go home, as such what we negotiated is that we gave her 2 units of FFP and 2 units of PRBCs here as well as a small dose of vitamin K and then we will recheck her labs and if reassuring she can go home for outpatient follow-up and this was also cleared with her primary care physician, Dr. Deleon by phone. After the administrations of 2 units of FFP and 2 units of packed red cells she had an appropriate incremental increase in her blood counts and a significant improvement in her INR which should continue to go down slightly since she was admitted for vitamin K here. She was advised not to take her warfarin until cleared by her primary care physician. Departure - Departure Disposition: 01 Home, Self Care Clinical Impression: Supratherapeutic INR, Nontraumatic rectus hematoma, Anemia, Peritoneal dialysis catheter in place, Renal failure Condition: Good Record reviewed to determine appropriate education?: Yes Instructions: ED Hematoma Comments: Do not take warfarin until Dr. Deleon says to do so. He would probably want to do labs in the next couple of days to touch base with his office tomorrow. Return anytime if worse. Discharge Date/Time: 04/23/18 21:49
[2018-04-23 17:20] LABS: BASOPHILS % (AUTO) 0.9 %; EOSINOPHILS % (AUTO) 0.1 %; LYMPHOCYTES # (AUTO) 0.5 10^3/uL (1.5-3.5); LYMPHOCYTES % (AUTO) 8.1 %; MEAN CORPUSCULAR HEMOGLOBIN 30.8 pg (27.0-31.0); MEAN CORPUSCULAR HGB CONC 32.2 g/dL (32.0-36.0); MEAN CORPUSCULAR VOLUME 95.6 fL (81.0-99.0); MONOCYTES # (AUTO) 0.3 10^3/uL (0.0-1.0); MONOCYTES % (AUTO) 6.1 %; NEUTROPHILS # (AUTO) 4.8 10^3/uL (1.5-6.6); NEUTROPHILS % (AUTO) 84.8 %; PLT - PLATELET COUNT 117 10^3/uL (130-450); RED BLOOD COUNT 2.06 10^6/uL (4.20-5.40); RED CELL DISTRIBUTION WIDTH 14.1 % (12.0-15.0); WHITE BLOOD COUNT 5.7 x10^3/uL (4.8-10.8)
[2018-04-23 17:23] LABS: PT - PROTHROMBIN TIME 112.3 secs (9.9-12.6)
[2018-04-23 17:26] LABS: HGB - HEMOGLOBIN 6.3 g/dL (12.0-16.0); INR > 10.0 (0.8-1.2)
[2018-04-23 17:36] LABS: ALBUMIN/GLOBULIN RATIO 1.3 (1.0-2.2); CREATININE 12.1 mg/dL (0.4-1.0); TOTAL PROTEIN 5.3 g/dL (6.7-8.2)
--- NOTE | 2018-04-23 18:34 | CT Report ---
Reason: Low abd pain, low Hgb, peritoneal dialysis Procedure Date: 04/23/2018 Accession Number: [id number] / [id number] Procedure: CT - Abdomen/Pelvis W/O CPT Code: FULL RESULT: EXAM: CT ABDOMEN AND PELVIS EXAM DATE: 04/23/2018 06:13 PM. CLINICAL HISTORY: Low abd pain, low Hgb, peritoneal dialysis. COMPARISONS: ABDOMEN/PELVIS W/O 03/18/2016 9:40 AM. TECHNIQUE: Routine helical CT imaging was performed through the abdomen and pelvis. IV contrast: No. Enteric contrast: No. Reconstructions: Coronal and sagittal. In accordance with CT protocol optimization, one or more of the following dose reduction techniques were utilized for this exam: automated exposure control, adjustment of mA and/or KV based on patient size, or use of iterative reconstructive technique. FINDINGS: Lung Bases: Unremarkable. Liver: Normal in size and contour. Gallbladder/Bile Ducts: Unremarkable. Spleen: Lobulated contour but normal in size. Pancreas: Normal in contour. Adrenal Glands: Normal. Kidneys: Kidneys are small in size. There is a hyperdense cyst in the upper pole left kidney measuring 1 cm. No hydronephrosis. Peritoneal Cavity/Bowel: There is a small volume of intraperitoneal free fluid. The intraperitoneal fluid is low density near 10 HU and does not appear hemorrhagic. The bowel is normal in caliber. There is no free air. There is an intramuscular hematoma with a layering hematocrit level within the left rectus abdominis muscle. This hematoma measures 75 x 49 x 140 mm. Most likely subacute. There is a peritoneal dialysis catheter. Pelvic Organs: Urinary bladder is unremarkable. Uterus is normal in size. There are scattered diverticula within the colon. Vasculature: There is moderate calcification of the abdominal aorta without aneurysm. Bones: There is moderate disk height loss at L3-L4. Other: None. IMPRESSION: 1. Subacute appearing intramuscular hematoma in the left rectus abdominis muscle measuring 75 x 49 x 140 mm. 2. Atrophic blackfeet kidneys. 3. Small-volume nonhemorrhagic intraperitoneal free fluid, which can be a normal finding in peritoneal dialysis. RADIA
[2018-04-23] MEDS ORDERED: oxyCODONE 5 MG TABLET PO STA (20:10)
[2018-04-23 21:08] LABS: HGB - HEMOGLOBIN 8.1 g/dL (12.0-16.0)
[2018-04-23 21:14] LABS: INR 3.5 (0.8-1.2); PT - PROTHROMBIN TIME 38.7 secs (9.9-12.6)
[2018-04-23] MEDS ORDERED: oxyCODONE/ACET 5/325 Prepack 4 PO STA (21:21)
[2018-04-23 21:29] VITALS: BP 190/77
== END 2018-04-23 21:49 | disposition home or self-care (01) ==
LOC: ED 16:38
DX: M79.81 Nontraumatic hematoma of soft tissue (principal); R10.32 Left lower quadrant pain; R79.1 Abnormal coagulation profile; I48.91 Unspecified atrial fibrillation; Z79.01 Long term (current) use of anticoagulants; I13.0 Hypertensive heart and chronic kidney disease with heart failure and stage 1 through stage 4 chronic kidney disease, or unspecified chronic kidney disease; N18.9 Chronic kidney disease, unspecified; Z99.2 Dependence on renal dialysis; I50.9 Heart failure, unspecified; D63.1 Anemia in chronic kidney disease
CPT/HCPCS: 36415; 74176; 80053; 83690; 83880; 85014; 85018; 85025; 85610; 86850; 86900; 86901; 86920; 99283; 99284; A9270; P9016; P9017

== ENCOUNTER 2018-04-27 07:57 | Outpatient (CLI) | payer MEDICARE, OTHER ==
[2018-04-27 08:21] LABS: BASOPHILS % (AUTO) 0.7 %; EOSINOPHILS # (AUTO) 0.2 10^3/uL (0.0-0.7); EOSINOPHILS % (AUTO) 3.8 %; HGB - HEMOGLOBIN 7.1 g/dL (12.0-16.0); LYMPHOCYTES # (AUTO) 0.7 10^3/uL (1.5-3.5); LYMPHOCYTES % (AUTO) 11.8 %; MEAN CORPUSCULAR HEMOGLOBIN 31.5 pg (27.0-31.0); MEAN CORPUSCULAR HGB CONC 32.4 g/dL (32.0-36.0); MEAN CORPUSCULAR VOLUME 97.3 fL (81.0-99.0); MEAN PLATELET VOLUME 9.5 fL (7.9-10.8); MONOCYTES # (AUTO) 0.5 10^3/uL (0.0-1.0); MONOCYTES % (AUTO) 8.5 %; NEUTROPHILS # (AUTO) 4.4 10^3/uL (1.5-6.6); NEUTROPHILS % (AUTO) 75.2 %; PLT - PLATELET COUNT 139 10^3/uL (130-450); RED BLOOD COUNT 2.26 10^6/uL (4.20-5.40); RED CELL DISTRIBUTION WIDTH 15.5 % (12.0-15.0); WHITE BLOOD COUNT 5.8 x10^3/uL (4.8-10.8)
[2018-04-27 08:26] LABS: INR 1.1 (0.8-1.2); PT - PROTHROMBIN TIME 12.2 secs (9.9-12.6)
[2018-04-27 08:33] LABS: CALCIUM 8.8 mg/dL (8.5-10.3)
[2018-04-27 08:34] LABS: CREATININE 11.4 mg/dL (0.4-1.0)
== END 2018-04-27 07:58 | disposition home or self-care (01) ==
LOC: LAB 07:57
PROVIDERS: ATTEND Internal Medicine
DX: D63.1 Anemia in chronic kidney disease (principal); Z79.01 Long term (current) use of anticoagulants; I50.9 Heart failure, unspecified; N19 Unspecified kidney failure
CPT/HCPCS: 36415; 80048; 85025; 85610

== ENCOUNTER 2018-04-27 12:38 | Outpatient (CLI) | payer MEDICARE, OTHER | END 2018-04-27 12:39 | disposition home or self-care (01) | LOC: DI 12:38 | PROVIDERS: ATTEND Physician Assistant | DX: R01.1 Cardiac murmur, unspecified (principal); I34.0 Nonrheumatic mitral (valve) insufficiency; I27.20 Pulmonary hypertension, unspecified; D63.1 Anemia in chronic kidney disease; I50.9 Heart failure, unspecified; N19 Unspecified kidney failure; Z79.01 Long term (current) use of anticoagulants | CPT/HCPCS: 36415; 80048; 85025; 85610; 93306 ==

== ENCOUNTER 2018-05-04 09:09 | Outpatient (CLI) | payer MEDICARE, OTHER ==
[2018-05-04 09:39] LABS: BASOPHILS # (AUTO) 0.1 10^3/uL (0.0-0.1); BASOPHILS % (AUTO) 1.3 %; EOSINOPHILS # (AUTO) 0.1 10^3/uL (0.0-0.7); EOSINOPHILS % (AUTO) 2.3 %; HGB - HEMOGLOBIN 7.6 g/dL (12.0-16.0); LYMPHOCYTES # (AUTO) 0.7 10^3/uL (1.5-3.5); LYMPHOCYTES % (AUTO) 12.3 %; MEAN CORPUSCULAR HEMOGLOBIN 31.7 pg (27.0-31.0); MEAN CORPUSCULAR HGB CONC 32.6 g/dL (32.0-36.0); MEAN CORPUSCULAR VOLUME 97.3 fL (81.0-99.0); MEAN PLATELET VOLUME 8.7 fL (7.9-10.8); MONOCYTES # (AUTO) 0.5 10^3/uL (0.0-1.0); MONOCYTES % (AUTO) 9.7 %; NEUTROPHILS % (AUTO) 74.4 %; PLT - PLATELET COUNT 238 10^3/uL (130-450); RED BLOOD COUNT 2.41 10^6/uL (4.20-5.40); RED CELL DISTRIBUTION WIDTH 16.6 % (12.0-15.0); WHITE BLOOD COUNT 5.4 x10^3/uL (4.8-10.8)
== END 2018-05-04 09:10 | disposition home or self-care (01) ==
LOC: LAB 09:09
PROVIDERS: ATTEND Internal Medicine
DX: N18.9 Chronic kidney disease, unspecified (principal); D63.1 Anemia in chronic kidney disease; Z79.01 Long term (current) use of anticoagulants
CPT/HCPCS: 36415; 85025; 85610

== ENCOUNTER 2018-05-17 14:38 | Emergency (ER) | payer MEDICARE, OTHER ==
[2018-05-17 14:48] VITALS: BP 181/66
--- NOTE | 2018-05-17 15:28 | ED Physician Documentation ---
PD HPI ABD PAIN - Stated complaint Stated Complaint: LUMP ABD - Chief complaint Chief Complaint: Abd Pain - History obtained from History obtained from: Patient - History of Present Illness Timing - onset: Last night (This is a 73-year-old woman on peritoneal dialysis who is anticoagulated. I saw her about a month ago for an abdominal wall hematoma with associated high INR and low hemoglobin. She was transfused FFP and red cells. She had her blood drawn once in the interim and she does not know the numbers but she reported it was acceptable. 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 Home Medications: Ambulatory Orders Medication Instructions Recorded Confirmed Calcitriol [Rocaltrol] 0.5 mcg PO DAILY 07/17/13 04/23/18 Fexofenadine HCl [Yolanda Allergy] 180 mg PO DAILY PRN 07/17/13 04/23/18 Fluticasone [Flonase] 1 sprays JODIE DAILY PRN 07/17/13 04/23/18 RX: Albuterol Sulfate [Ventolin 2 puffs INH Q4-6H PRN 07/17/13 04/23/18 Hfa] RX: Hydralazine HCl 25 mg PO TID 07/17/13 04/23/18 RX: Pravastatin Sodium 40 mg PO HS 07/17/13 04/23/18 Doxazosin [Cardura] 4 mg PO DAILY 04/23/18 04/23/18 RX: Metoprolol Succinate 25 mg PO DAILY 04/23/18 04/23/18 - Allergies Allergies/Adverse Reactions: Allergies Allergy/AdvReac Type Severity Reaction Status Date / Time cephalexin [From Keflex] Allergy Rash Verified 05/17/18 14:47 Penicillins Allergy Rash Verified 05/17/18 14:47 - Social History Does the pt smoke?: No Smoking Status: Never smoker Does the pt have substance abuse?: No - Immunizations Immunizations are current?: Yes - POLST Patient has POLST: No PD ED PE NORMAL - Vitals Vital signs reviewed: Yes - General General: Alert and oriented X 3, No acute distress - Abdomen Abdomen: Normal bowel sounds, Soft, Non tender, Other (There is a palpable nontender abdominal wall hematoma. On bedside ultrasound it measures 100 x 90 x 35 mm. Note this is smaller than the dimensions on the CAT scan last month.) - Back Back: No CVA TTP, No spinal TTP - Neuro Neuro: Alert and oriented X 3, Normal speech Results - Vitals Vitals: Vital Signs - 24 hr 05/17/18 05/17/18 14:46 14:47 Temperature 36.7 C Heart Rate 67 Respiratory 18 Rate Blood Pressure 181/66 H O2 Saturation 97 Oxygen O2 Source Room air - Labs Labs: Laboratory Tests 05/17/18 05/17/18 15:38 15:38 Hgb 9.0 L Hct 28.0 L PT 34.9 H INR 3.1 H PD MEDICAL DECISION MAKING - ED course ED course: Although the hematoma is more symptomatic now it is actually smaller on ultrasound and her labs have improved. Departure - Departure Disposition: 01 Home, Self Care Clinical Impression: Nontraumatic rectus hematoma Condition: Good Record reviewed to determine appropriate education?: Yes Comments: As discussed, the abdominal wall hematoma seems to be slowly shrinking your hemoglobin is going up and your INR is 3.1. The INR is slightly high when I would Skip your next dose and eat a salad. Discharge Date/Time: 05/17/18 16:17
[2018-05-17 15:56] LABS: INR 3.1 (0.8-1.2); PT - PROTHROMBIN TIME 34.9 secs (9.9-12.6)
== END 2018-05-17 16:17 | disposition home or self-care (01) ==
LOC: ED 14:38
DX: M79.81 Nontraumatic hematoma of soft tissue (principal); I10 Essential (primary) hypertension; Z79.01 Long term (current) use of anticoagulants; Z99.2 Dependence on renal dialysis
CPT/HCPCS: 36415; 85014; 85018; 85610; 99283

== ENCOUNTER 2018-05-20 20:27 | Emergency (ER) | payer MEDICARE, OTHER ==
--- NOTE | 2018-05-20 20:38 | ED Physician Documentation ---
PD HPI DYSPNEA - Stated complaint Stated Complaint: SOA/ASTHMA - Chief complaint Chief Complaint: Resp - History obtained from History obtained from: Patient - History of Present Illness Timing - onset: Today (this afternoon) Timing - onset during: Light activity Timing - details: Gradual onset Pain level max: 0 Pain level now: 0 Improved by: O2, Rest Worsened by: Exertion Associated symptoms: Cough. No: Fever, Chest pain / discomfort, Bilateral edema, Unilateral edema Similar symptoms before: Diagnosis (asthma) Recently seen: Emergency Dept (T+R 2 days ago for unrelated c/o) - Additional information Additional information: c/o gradually worsening dyspnea since this afternoon. coughing, worsening, since yesterday. Although furosemide does not appear on her medication list in [facility], she tells me she took furosemide earlier today and that she does take it daily. She was brought to ED by private vehicle ( drove), and has pulse ox in 70s on room air in triage, improves to mid/upper 80s with NRB. Review of Systems Constitutional: reports: Chills, Sweats. denies: Fever Eyes: reports: Reviewed and negative Ears: reports: Reviewed and negative Nose: reports: Reviewed and negative Throat: reports: Reviewed and negative Cardiac: reports: Reviewed and negative Respiratory: reports: Dyspnea, Cough. denies: Hemoptysis, Wheezing GI: reports: Reviewed and negative : denies: Dysuria, Frequency Skin: reports: Reviewed and negative Musculoskeletal: reports: Reviewed and negative Neurologic: reports: Reviewed and negative PD PAST MEDICAL HISTORY - Past Medical History Cardiovascular: Hypertension Respiratory: Asthma Neuro: None Endocrine/Autoimmune: None GI: None CUFF MAKER: None : Dialysis HEENT: None Psych: None Musculoskeletal: None Derm: None - Past Surgical History Past Surgical History: Yes /CUFF MAKER: Other - Present Medications Home Medications: Ambulatory Orders Medication Instructions Recorded Confirmed Albuterol Sulfate [Ventolin Hfa] 2 puffs INH Q4-6H PRN 07/17/13 05/20/18 Calcitriol [Rocaltrol] 0.5 mcg PO DAILY 07/17/13 05/20/18 Fexofenadine HCl [Yolanda Allergy] 180 mg PO DAILY PRN 07/17/13 05/20/18 Fluticasone [Flonase] 1 sprays JODIE DAILY PRN 07/17/13 05/20/18 Hydralazine HCl 25 mg PO TID 07/17/13 05/20/18 Pravastatin Sodium 40 mg PO HS 07/17/13 05/20/18 Doxazosin [Cardura] 4 mg PO DAILY 04/23/18 05/20/18 Metoprolol Succinate 25 mg PO DAILY 04/23/18 05/20/18 Furosemide [Lasix] 1 tab PO DAILY 05/20/18 Warfarin [Coumadin] 1 tab PO DAILY 05/20/18 05/20/18 - Allergies Allergies/Adverse Reactions: Allergies Allergy/AdvReac Type Severity Reaction Status Date / Time cephalexin [From Keflex] Allergy Rash Verified 05/20/18 20:31 Penicillins Allergy Rash Verified 05/20/18 20:31 - Social History Does the pt smoke?: No Smoking Status: Never smoker Does the pt have substance abuse?: No - Immunizations Immunizations are current?: Yes - POLST Patient has POLST: No PD ED PE NORMAL - Vitals Vital signs reviewed: Yes - General General: Alert and oriented X 3, Well developed/nourished, Other (moderate res piratory distress, able to speak in 1-2 word sentences, but more comfortable with just nodding yes/no to questions) - HEENT HEENT: Moist mucous membranes - Neck Neck: Supple, no meningeal sign - Abdomen Abdomen: Soft, Non tender - Derm Derm: Normal color, Warm and dry PD ED PE EXPANDED - Cardiac Cardiac: Tachy, Regular Rhythm - Respiratory Respiratory: Distress, Rhonchi, Rales, Decreased breath sounds - Extremities Extremities: Pedal edema bilateral Results - Vitals Vitals: Vital Signs - 24 hr 05/20/18 05/20/18 05/20/18 20:31 20:49 21:01 Temperature 36.8 C Heart Rate 110 H 114 H 117 H Respiratory 18 20 34 H Rate Blood Pressure 165/109 H 151/101 H 181/97 H O2 Saturation 88 L 96 95 05/20/18 05/20/18 05/20/18 21:14 21:22 21:29 Temperature Heart Rate 117 H 113 H 108 H Respiratory 26 H 28 H 30 H Rate Blood Pressure 170/123 H 172/108 H O2 Saturation 93 93 05/20/18 05/20/18 05/20/18 21:32 21:33 21:43 Temperature Heart Rate 110 H 108 H 107 H Respiratory 32 H 20 Rate Blood Pressure 175/105 H 174/96 H O2 Saturation 92 93 05/20/18 05/20/18 05/20/18 22:03 22:15 22:30 Temperature Heart Rate 105 H 106 H 102 H Respiratory 28 H 28 H 26 H Rate Blood Pressure 172/107 H 169/94 H 168/101 H O2 Saturation 95 95 94 05/20/18 05/20/18 05/21/18 23:00 23:30 00:00 Temperature Heart Rate 91 92 91 Respiratory 21 19 21 Rate Blood Pressure 156/97 H 154/97 H 138/87 H O2 Saturation 95 97 98 05/21/18 05/21/18 05/21/18 00:30 01:00 01:30 Temperature Heart Rate 88 89 93 Respiratory 25 H 21 21 Rate Blood Pressure 125/82 H 128/83 H 130/82 H O2 Saturation 97 99 99 05/21/18 05/21/18 05/21/18 02:00 02:30 03:00 Temperature Heart Rate 90 87 84 Respiratory 21 15 21 Rate Blood Pressure 127/78 113/75 118/74 O2 Saturation 98 100 100 05/21/18 05/21/18 05/21/18 03:30 04:00 04:30 Temperature Heart Rate 85 85 81 Respiratory 24 19 19 Rate Blood Pressure 127/77 121/75 127/76 O2 Saturation 99 98 97 Oxygen O2 Source Room air Oxygen Flow Rate 15 - Labs Labs: Laboratory Tests 05/20/18 05/20/18 05/20/18 20:45 20:45 20:45 WBC 4.7 L RBC 3.13 L Hgb 10.0 L Hct 31.0 L MCV 99.1 H MCH 31.9 H MCHC 32.2 RDW 15.3 H Plt Count 166 MPV 9.3 Neut # (Auto) 3.2 Lymph # (Auto) 1.0 L Kenton # (Auto) 0.4 Eos # (Auto) 0.0 Baso # (Auto) 0.1 Absolute Nucleated RBC 0.01 Nucleated RBC % 0.2 PT INR APTT D-Dimer Sodium 134 L Potassium 5.0 Chloride 89 L Carbon Dioxide 23 Anion Gap 22.0 H BUN 61 H Creatinine 10.8 H* Estimated GFR (MDRD) 3 L Glucose 181 H Lactic Acid Calcium 9.0 Total Bilirubin 0.8 AST 38 ALT 19 Alkaline Phosphatase 56 Troponin I 0.08 B-Natriuretic Peptide Total Protein 6.0 L Albumin 3.2 Globulin 2.8 Albumin/Globulin Ratio 1.1 Lipase 54 H Influenza A (Rapid) Influenza B (Rapid) 05/20/18 05/20/18 05/20/18 20:45 20:45 20:45 WBC RBC Hgb Hct MCV MCH MCHC RDW Plt Count MPV Neut # (Auto) Lymph # (Auto) Kenton # (Auto) Eos # (Auto) Baso # (Auto) Absolute Nucleated RBC Nucleated RBC % PT 18.8 H INR 1.7 H APTT 27.7 D-Dimer 505.7 H Sodium Potassium Chloride Carbon Dioxide Anion Gap BUN Creatinine Estimated GFR (MDRD) Glucose Lactic Acid Calcium Total Bilirubin AST ALT Alkaline Phosphatase Troponin I B-Natriuretic Peptide 9001.00 H Total Protein Albumin Globulin Albumin/Globulin Ratio Lipase Influenza A (Rapid) Influenza B (Rapid) 05/20/18 05/20/18 20:55 21:20 WBC RBC Hgb Hct MCV MCH MCHC RDW Plt Count MPV Neut # (Auto) Lymph # (Auto) [place] # (Auto) Eos # (Auto) Baso # (Auto) Absolute Nucleated RBC Nucleated RBC % PT INR APTT D-Dimer Sodium Potassium Chloride Carbon Dioxide Anion Gap BUN Creatinine Estimated GFR (MDRD) Glucose Lactic Acid 3.5 H* Calcium Total Bilirubin AST ALT Alkaline Phosphatase Troponin I B-Natriuretic Peptide Total Protein Albumin Globulin Albumin/Globulin Ratio Lipase Influenza A (Rapid) POSITIVE H Influenza B (Rapid) Negative - Rads (name of study) chest xray Radiology: Prelim report reviewed, See rad report PD MEDICAL DECISION MAKING - ED course Complexity details: reviewed old records, reviewed results, re-evaluated patient, considered differential, d/w patient, d/w family ED course: Tried to contact Dr. Strong (or covering physician), did not hear back and thus contacted [facility] to determine bed availability. Unfortunately, there are no appropriate beds at [facility]. There are also no appropriate beds at [facility]. I discussed other options with patient ([facility], [facility]). She prefers [facility]. I discussed the case with the hospitalist at [facility]. He recommends ICU bed. I then d/w the instructor kindergarten at [facility] (Dr. Garcia) and he says he can see patient as consult once they have arrived and been assessed by assembly machine offbearer. D/W Dr. Morales (assembly machine offbearer), accepts transfer to [facility] / [facility]. During ED stay, she had a 10-beat run of non-sustained ventricular tachycardia Departure - Departure Disposition: 02 Transfer Acute Care Hosp Clinical Impression: Influenza A, Nonsustained ventricular tachycardia Congestive heart failure Qualifiers: Heart failure type: unspecified Heart failure chronicity: acute Qualified Code(s): I50.9 - Heart failure, unspecified Condition: Stable Discharge Date/Time: 05/21/18 05:06
[2018-05-20] MEDS ORDERED: NITROGLYCERIN 2% PASTE TOP STA (20:51)
[2018-05-20] MEDS ORDERED: FUROSEMIDE 40 MG/4 ML VIAL IVP STA (20:51)
[2018-05-20] MEDS ORDERED: IPRATROPIUM/ALBUTEROL 3 ML NEB INH STA (20:52)
[2018-05-20 21:00] LABS: BASOPHILS # (AUTO) 0.1 10^3/uL (0.0-0.1); BASOPHILS % (AUTO) 1.7 %; LYMPHOCYTES % (AUTO) 20.7 %; MEAN CORPUSCULAR HEMOGLOBIN 31.9 pg (27.0-31.0); MEAN CORPUSCULAR HGB CONC 32.2 g/dL (32.0-36.0); MEAN CORPUSCULAR VOLUME 99.1 fL (81.0-99.0); MEAN PLATELET VOLUME 9.3 fL (7.9-10.8); MONOCYTES # (AUTO) 0.4 10^3/uL (0.0-1.0); MONOCYTES % (AUTO) 8.4 %; NEUTROPHILS # (AUTO) 3.2 10^3/uL (1.5-6.6); NEUTROPHILS % (AUTO) 69.2 %; PLT - PLATELET COUNT 166 10^3/uL (130-450); RED BLOOD COUNT 3.13 10^6/uL (4.20-5.40); RED CELL DISTRIBUTION WIDTH 15.3 % (12.0-15.0); WHITE BLOOD COUNT 4.7 x10^3/uL (4.8-10.8)
[2018-05-20 21:17] LABS: ALBUMIN 3.2 g/dL (3.2-5.5); ALBUMIN/GLOBULIN RATIO 1.1 (1.0-2.2); BILIRUBIN,TOTAL 0.8 mg/dL (0.2-1.0)
[2018-05-20 21:18] LABS: CREATININE 10.8 mg/dL (0.4-1.0)
--- NOTE | 2018-05-20 21:28 | XRAY Report ---
Reason: dyspnea Procedure Date: 05/20/2018 Accession Number: [id number] / [id number] Procedure: XR - Chest 1 View X-Ray CPT Code: 45353 FULL RESULT: EXAM: CHEST RADIOGRAPHY EXAM DATE: 05/20/2018 09:07 PM. CLINICAL HISTORY: Dyspnea. COMPARISON: CHEST 2 VIEW 04/18/2018 11:22 AM. TECHNIQUE: 1 view. FINDINGS: Lungs/Pleura: There is perihilar reticular opacity. There is interlobular septal thickening. Small effusions may be present. No evidence of pneumothorax. Mediastinum: There is cardiomegaly. There is mild thoracic aortic tortuosity. Other: None. IMPRESSION: 1. There is cardiomegaly. There is thoracic aortic tortuosity. 2. There is perihilar reticular opacity with interlobular septal thickening. This is suspicious for lung edema secondary to heart failure. 3. No evidence of pneumothorax. RADIA
[2018-05-20 21:37] LABS: INR 1.7 (0.8-1.2); PT - PROTHROMBIN TIME 18.8 secs (9.9-12.6)
[2018-05-20 21:44] LABS: PARTIAL THROMBOPLASTIN TIME 27.7 secs (24.9-33.3)
[2018-05-21] MEDS ORDERED: OSELTAMIVIR 75 MG CAPSULE PO STA (01:04)
[2018-05-21 04:30] VITALS: BP 127/76
== END 2018-05-21 05:06 | disposition short-term general hospital (02) ==
LOC: ED 20:27
DX: I11.0 Hypertensive heart disease with heart failure (principal); I50.9 Heart failure, unspecified; I47.2 Ventricular tachycardia; J10.1 Influenza due to other identified influenza virus with other respiratory manifestations; J45.909 Unspecified asthma, uncomplicated
CPT/HCPCS: 36415; 71045; 80053; 83605; 83690; 83880; 84484; 85025; 85379; 85610; 85730; 87275; 87276; 93005; 94640; 94660; 96374; 99285; A9270

== ENCOUNTER 2018-06-08 09:59 | Outpatient (CLI) | payer MEDICARE, OTHER ==
[2018-06-08 10:58] LABS: CHOL/HDL RATIO 3.8 (<4.4); CHOLESTEROL 220 mg/dL; HDL CHOLESTEROL 58 mg/dL; LDL CHOLESTEROL,CALCULATED 133 mg/dL; LDL/HDL RATIO 2.3 (<4.4); VLDL CHOLESTEROL 29 mg/dL
[2018-06-08 11:21] LABS: FREE T4 (FREE THYROXINE) 1.15 ng/dL (0.58-1.64)
[2018-06-08 12:16] LABS: THYROID STIMULATING HORMONE 3.32 uIU/mL (0.34-5.60)
== END 2018-06-08 10:00 | disposition home or self-care (01) ==
LOC: LAB 09:59
PROVIDERS: ATTEND Physician Assistant
DX: I48.2 Chronic atrial fibrillation (principal); E78.2 Mixed hyperlipidemia; R53.83 Other fatigue
CPT/HCPCS: 36415; 80061; 83721; 84439; 84443; 85610

== ENCOUNTER 2018-06-08 10:36 | Emergency (ER) | payer MEDICARE, OTHER ==
[2018-06-08 10:50] VITALS: BP 152/80
--- NOTE | 2018-06-08 11:04 | ED Physician Documentation ---
History of Present Illness - Stated complaint Stated Complaint: ELEVATED INR - Chief complaint Chief Complaint: General - History obtained from History obtained from: Patient - History of Present Illness Pain level max: 0 Pain level now: 0 - Additonal information Additional information: 73-year-old female presents to the emergency department with an elevated INR and outpatient blood draw. On Monday it was 8.9. Today it is 8.0. She has not had no bleeding other than a nosebleed a week ago. She was not told to stop her warfarin after the elevated blood draw on Monday. She has had no falls. No injuries. No GI bleeding. No gum or teeth bleeding. Nothing makes it better or worse Review of Systems Constitutional: denies: Fever GI: denies: Vomiting, Hematemesis, Bloody / black stool Skin: denies: Rash PD PAST MEDICAL HISTORY - Past Medical History Cardiovascular: Hypertension Respiratory: Asthma Neuro: None Endocrine/Autoimmune: None GI: None SHIPPING INSPECTOR: None : Dialysis HEENT: None Psych: None Musculoskeletal: None Derm: None - Past Surgical History Past Surgical History: Yes /SHIPPING INSPECTOR: Other - Present Medications Home Medications: Ambulatory Orders Medication Instructions Recorded Confirmed Albuterol Sulfate [Ventolin Hfa] 2 puffs INH Q4-6H PRN 07/17/13 05/20/18 Calcitriol [Rocaltrol] 0.5 mcg PO DAILY 07/17/13 05/20/18 Fexofenadine HCl [Yolanda Allergy] 180 mg PO DAILY PRN 07/17/13 05/20/18 Fluticasone [Flonase] 1 sprays JODIE DAILY PRN 07/17/13 05/20/18 Hydralazine HCl 25 mg PO TID 07/17/13 05/20/18 Pravastatin Sodium 40 mg PO HS 07/17/13 05/20/18 Doxazosin [Cardura] 4 mg PO DAILY 04/23/18 05/20/18 Metoprolol Succinate 25 mg PO DAILY 04/23/18 05/20/18 Furosemide [Lasix] 1 tab PO DAILY 05/20/18 Warfarin [Coumadin] 1 tab PO DAILY 05/20/18 05/20/18 - Allergies Allergies/Adverse Reactions: Allergies Allergy/AdvReac Type Severity Reaction Status Date / Time cephalexin [From Keflex] Allergy Rash Verified 06/08/18 10:50 Penicillins Allergy Rash Verified 06/08/18 10:50 - Social History Does the pt smoke?: No Smoking Status: Never smoker Does the pt have substance abuse?: No - Immunizations Immunizations are current?: Yes - POLST Patient has POLST: No PD ED PE NORMAL - Vitals Vital signs reviewed: Yes - General General: Alert and oriented X 3, No acute distress, Well developed/nourished - HEENT HEENT: PERRL, Moist mucous membranes, Pharynx benign - Neck Neck: Supple, no meningeal sign - Cardiac Cardiac: RRR, Strong equal pulses - Respiratory Respiratory: No respiratory distress, Clear bilaterally - Abdomen Abdomen: Soft, Non tender, Non distended - Derm Derm: Warm and dry, No rash - Extremities Extremities: No edema - Neuro Neuro: Alert and oriented X 3 - Psych Psych: Normal mood, Normal affect Results - Vitals Vitals: Vital Signs - 24 hr 06/08/18 10:49 Temperature 35.7 C L Heart Rate 68 Respiratory 14 Rate Blood Pressure 152/80 H O2 Saturation 100 Oxygen O2 Source Room air PD MEDICAL DECISION MAKING - ED course Complexity details: reviewed old records, considered differential, d/w patient, d/w family ED course: 73-year-old female with an INR of 8. No signs of active bleeding. Does not have any history of malignancy. No history of thrombocytopenia. Will hold her INR at this time. We will hold off on oral vitamin K. We will have her retested on Monday with her doctor to determine if she should resume her warfarin at a lower dosage. Patient counseled regarding signs and symptoms for which I believe and urgent re-evaluation would be necessary. Patient with good understanding of and agreement to plan and is comfortable going home at this time This document was made in part using voice recognition software. While efforts are made to proofread this document, sound alike and grammatical errors may occur. Departure - Departure Disposition: 01 Home, Self Care Clinical Impression: Supratherapeutic INR Condition: Good Instructions: International Normalized Ratio Follow-Up: Kelly Swann PA [Primary Care Provider] - Within 3 Days Comments: Stop the warfarin. Have your INR rechecked on Monday. Return if you notice any bleeding. Return if you fall and strike her head. Discharge Date/Time: 06/08/18 11:09
== END 2018-06-08 11:09 | disposition home or self-care (01) ==
LOC: ED 10:36
DX: R79.1 Abnormal coagulation profile (principal); I10 Essential (primary) hypertension; Z79.01 Long term (current) use of anticoagulants; I48.2 Chronic atrial fibrillation; E78.2 Mixed hyperlipidemia; R53.83 Other fatigue
CPT/HCPCS: 36415; 80061; 83721; 84439; 84443; 85610; 99282

== ENCOUNTER 2018-06-10 08:56 | Emergency (ER) | payer MEDICARE, OTHER ==
[2018-06-10 10:03] LABS: BASOPHILS # (AUTO) 0.1 10^3/uL (0.0-0.1); BASOPHILS % (AUTO) 1.9 %; EOSINOPHILS # (AUTO) 0.1 10^3/uL (0.0-0.7); EOSINOPHILS % (AUTO) 1.1 %; LYMPHOCYTES # (AUTO) 0.7 10^3/uL (1.5-3.5); LYMPHOCYTES % (AUTO) 10.7 %; MEAN CORPUSCULAR HEMOGLOBIN 32.5 pg (27.0-31.0); MEAN CORPUSCULAR HGB CONC 33.9 g/dL (32.0-36.0); MEAN CORPUSCULAR VOLUME 95.8 fL (81.0-99.0); MEAN PLATELET VOLUME 8.5 fL (7.9-10.8); MONOCYTES # (AUTO) 0.5 10^3/uL (0.0-1.0); MONOCYTES % (AUTO) 7.7 %; NEUTROPHILS # (AUTO) 5.3 10^3/uL (1.5-6.6); NEUTROPHILS % (AUTO) 78.6 %; PLT - PLATELET COUNT 194 10^3/uL (130-450); RED BLOOD COUNT 2.47 10^6/uL (4.20-5.40); RED CELL DISTRIBUTION WIDTH 14.5 % (12.0-15.0); WHITE BLOOD COUNT 6.8 x10^3/uL (4.8-10.8)
[2018-06-10 10:08] LABS: PT - PROTHROMBIN TIME 79.1 secs (9.9-12.6)
[2018-06-10 10:15] LABS: INR 7.2 (0.8-1.2)
[2018-06-10] MEDS ORDERED: CHERRY SYRUP 10 ML UDC PO ONE (10:47)
[2018-06-10] MEDS ORDERED: PHYTONADIONE 10 MG/ML AMP PO ONE (10:47)
[2018-06-10 11:04] VITALS: BP 167/87
--- NOTE | 2018-06-10 11:05 | ED Physician Documentation ---
PD HPI UPPER EXT INJURY - Stated complaint Stated Complaint: RT ARM PAIN/SWELLING - Chief complaint Chief Complaint: Ext Problem - History obtained from History obtained from: Patient - History of Present Illness Location: Right, Forearm Type of injury: No: Fall, Twist, Blunt / blow Where injury occurred: Home (awoke with bruising of the right forearm. had elevated INR couple days ago and was holding Coumadin.) Timing - onset: Today Timing - details: Abrupt onset Worsened by: Palpating. No: Moving (does not hurt to move arm or lift with wrist.) Associated symptoms: No: Weakness, Numbness Contributing factors: Anticoagulated Recently seen: Emergency Dept Review of Systems Skin: denies: Abrasion (s), Laceration (s) Neurologic: denies: Focal weakness, Numbness PD PAST MEDICAL HISTORY - Past Medical History Cardiovascular: Hypertension Respiratory: Asthma Neuro: None Endocrine/Autoimmune: None GI: None CODING SPEC: None : Dialysis HEENT: None Psych: None Musculoskeletal: None Derm: None - Past Surgical History Past Surgical History: Yes /CODING SPEC: Other - Present Medications Home Medications: Ambulatory Orders Medication Instructions Recorded Confirmed Albuterol Sulfate [Ventolin Hfa] 2 puffs INH Q4-6H PRN 07/17/13 05/20/18 Calcitriol [Rocaltrol] 0.5 mcg PO DAILY 07/17/13 05/20/18 Fexofenadine HCl [Yolanda Allergy] 180 mg PO DAILY PRN 07/17/13 05/20/18 Fluticasone [Flonase] 1 sprays JODIE DAILY PRN 07/17/13 05/20/18 Hydralazine HCl 25 mg PO TID 07/17/13 05/20/18 Pravastatin Sodium 40 mg PO HS 07/17/13 05/20/18 Doxazosin [Cardura] 4 mg PO DAILY 04/23/18 05/20/18 Metoprolol Succinate 25 mg PO DAILY 04/23/18 05/20/18 Furosemide [Lasix] 1 tab PO DAILY 05/20/18 Warfarin [Coumadin] 1 tab PO DAILY 05/20/18 05/20/18 - Allergies Allergies/Adverse Reactions: Allergies Allergy/AdvReac Type Severity Reaction Status Date / Time cephalexin [From Keflex] Allergy Rash Verified 06/08/18 10:50 Penicillins Allergy Rash Verified 06/10/18 09:02 - Social History Does the pt smoke?: No Smoking Status: Never smoker Does the pt have substance abuse?: No - Immunizations Immunizations are current?: Yes - POLST Patient has POLST: No PD ED PE NORMAL - Vitals Vital signs reviewed: Yes - General General: Alert and oriented X 3, Well developed/nourished - Derm Derm: Normal color, Warm and dry - Extremities Extremities: Other (right forearm with bruising proximal volar area without muscle tenderness. ) - Neuro Neuro: Alert and oriented X 3, No motor deficit, No sensory deficit Results - Vitals Vitals: Vital Signs - 24 hr 06/10/18 06/10/18 09:00 11:03 Temperature 37.1 C 36.4 C L Heart Rate 75 65 Respiratory 18 16 Rate Blood Pressure 177/79 H 167/87 H O2 Saturation 100 99 Oxygen O2 Source Room air - Labs Labs: Laboratory Tests 06/10/18 06/10/18 06/10/18 09:30 09:54 09:54 WBC 6.8 RBC 2.47 L Hgb 8.0 L Hct 23.7 L MCV 95.8 MCH 32.5 H MCHC 33.9 RDW 14.5 Plt Count 194 MPV 8.5 Neut # (Auto) 5.3 Lymph # (Auto) 0.7 L [place] # (Auto) 0.5 Eos # (Auto) 0.1 Baso # (Auto) 0.1 Absolute Nucleated RBC 0.00 Nucleated RBC % 0.0 PT 79.1 H INR 7.2 H* Whole Blood INR 8.0 H* Departure - Departure Disposition: 01 Home, Self Care Clinical Impression: Spontaneous hematoma of forearm, Supratherapeutic INR Condition: Stable Record reviewed to determine appropriate education?: Yes Instructions: ED Hematoma Follow-Up: Kelly Swann PA [Primary Care Provider] - Comments: Hold your Coumadin for 2 more days and have it rechecked in the office. Use an Andrei wrap or so to the hematoma area on the forearm to reduce swelling. Tylenol if needed for pain. Discharge Date/Time: 06/10/18 11:07
== END 2018-06-10 11:07 | disposition home or self-care (01) ==
LOC: ED 08:56
DX: M79.81 Nontraumatic hematoma of soft tissue (principal); R79.1 Abnormal coagulation profile; Z79.01 Long term (current) use of anticoagulants; I10 Essential (primary) hypertension
CPT/HCPCS: 36415; 85025; 85610; 99283; A9270

== ENCOUNTER 2018-06-13 11:27 | Outpatient (CLI) | payer MEDICARE, OTHER | END 2018-06-13 11:28 | disposition home or self-care (01) | LOC: LAB 11:27 | PROVIDERS: ATTEND Physician Assistant | DX: I48.2 Chronic atrial fibrillation (principal) | CPT/HCPCS: 85610 ==

== ENCOUNTER 2018-06-23 13:55 | Outpatient (CLI) | payer MEDICARE, OTHER | END 2018-06-23 13:56 | disposition home or self-care (01) | LOC: DI 13:55 | PROVIDERS: ATTEND Internal Medicine Cardiovascular Disease | DX: I50.9 Heart failure, unspecified (principal) | CPT/HCPCS: 93306 ==

== ENCOUNTER 2018-06-25 11:08 | Outpatient (CLI) | payer MEDICARE, OTHER ==
[2018-06-25 11:37] LABS: BASOPHILS # (AUTO) 0.2 10^3/uL (0.0-0.1); BASOPHILS % (AUTO) 3.5 %; EOSINOPHILS # (AUTO) 0.2 10^3/uL (0.0-0.7); EOSINOPHILS % (AUTO) 3.6 %; HGB - HEMOGLOBIN 7.7 g/dL (12.0-16.0); LYMPHOCYTES # (AUTO) 0.8 10^3/uL (1.5-3.5); LYMPHOCYTES % (AUTO) 19.7 %; MEAN CORPUSCULAR HEMOGLOBIN 30.9 pg (27.0-31.0); MEAN CORPUSCULAR HGB CONC 32.7 g/dL (32.0-36.0); MEAN CORPUSCULAR VOLUME 94.3 fL (81.0-99.0); MEAN PLATELET VOLUME 7.8 fL (7.9-10.8); MONOCYTES # (AUTO) 0.5 10^3/uL (0.0-1.0); MONOCYTES % (AUTO) 10.8 %; NEUTROPHILS # (AUTO) 2.7 10^3/uL (1.5-6.6); NEUTROPHILS % (AUTO) 62.4 %; PLT - PLATELET COUNT 216 10^3/uL (130-450); RED BLOOD COUNT 2.51 10^6/uL (4.20-5.40); RED CELL DISTRIBUTION WIDTH 13.4 % (12.0-15.0); WHITE BLOOD COUNT 4.3 x10^3/uL (4.8-10.8)
== END 2018-06-25 11:09 | disposition home or self-care (01) ==
LOC: LAB 11:08
PROVIDERS: ATTEND Physician Assistant
DX: I48.2 Chronic atrial fibrillation (principal); Z79.01 Long term (current) use of anticoagulants; D64.9 Anemia, unspecified
CPT/HCPCS: 36415; 85025; 85610

== ENCOUNTER 2018-07-04 12:32 | Outpatient (CLI) | payer MEDICARE, OTHER | END 2018-07-04 12:33 | disposition home or self-care (01) | LOC: LAB 12:32 | PROVIDERS: ATTEND Physician Assistant | DX: I48.2 Chronic atrial fibrillation (principal) | CPT/HCPCS: 85610 ==

== ENCOUNTER 2018-07-19 11:31 | Outpatient (CLI) | payer MEDICARE, OTHER | END 2018-07-19 11:32 | disposition home or self-care (01) | LOC: LAB 11:31 | PROVIDERS: ATTEND Physician Assistant | DX: I48.2 Chronic atrial fibrillation (principal) | CPT/HCPCS: 85610 ==

== ENCOUNTER 2018-08-01 10:45 | Outpatient (CLI) | payer MEDICARE, OTHER ==
[2018-08-01 11:44] LABS: INR 2.2 (0.8-1.2); PT - PROTHROMBIN TIME 24.8 secs (9.9-12.6)
== END 2018-08-01 10:46 | disposition home or self-care (01) ==
LOC: LAB 10:45
PROVIDERS: ATTEND Internal Medicine Nephrology
DX: D68.9 Coagulation defect, unspecified (principal)
CPT/HCPCS: 36415; 85610

== ENCOUNTER 2018-08-08 09:58 | Outpatient (CLI) | payer MEDICARE, OTHER ==
[2018-08-08 10:43] LABS: BASOPHILS # (AUTO) 0.1 10^3/uL (0.0-0.1); BASOPHILS % (AUTO) 2.1 %; EOSINOPHILS # (AUTO) 0.1 10^3/uL (0.0-0.7); EOSINOPHILS % (AUTO) 1.7 %; HGB - HEMOGLOBIN 12.5 g/dL (12.0-16.0); LYMPHOCYTES # (AUTO) 1.2 10^3/uL (1.5-3.5); LYMPHOCYTES % (AUTO) 19.8 %; MEAN CORPUSCULAR HEMOGLOBIN 29.7 pg (27.0-31.0); MEAN CORPUSCULAR VOLUME 92.7 fL (81.0-99.0); MEAN PLATELET VOLUME 8.8 fL (7.9-10.8); MONOCYTES # (AUTO) 0.6 10^3/uL (0.0-1.0); NEUTROPHILS # (AUTO) 3.9 10^3/uL (1.5-6.6); NEUTROPHILS % (AUTO) 65.4 %; PLT - PLATELET COUNT 234 10^3/uL (130-450); RED CELL DISTRIBUTION WIDTH 14.4 % (12.0-15.0); WHITE BLOOD COUNT 5.9 x10^3/uL (4.8-10.8)
[2018-08-08 10:58] LABS: ALBUMIN 3.8 g/dL (3.2-5.5); ALBUMIN/GLOBULIN RATIO 1.3 (1.0-2.2); BILIRUBIN,TOTAL 0.8 mg/dL (0.2-1.0); TOTAL PROTEIN 6.7 g/dL (6.7-8.2)
[2018-08-08 11:00] LABS: CREATININE 11.8 mg/dL (0.4-1.0)
== END 2018-08-08 09:59 | disposition home or self-care (01) ==
LOC: LAB 09:58
PROVIDERS: ATTEND Internal Medicine
DX: I50.9 Heart failure, unspecified (principal); D63.1 Anemia in chronic kidney disease
CPT/HCPCS: 36415; 80053; 83970; 84443; 85025

== ENCOUNTER 2018-08-14 11:26 | Outpatient (CLI) | payer MEDICARE, OTHER ==
[2018-08-14 12:04] LABS: BASOPHILS # (AUTO) 0.1 10^3/uL (0.0-0.1); EOSINOPHILS # (AUTO) 0.1 10^3/uL (0.0-0.7); EOSINOPHILS % (AUTO) 1.5 %; HGB - HEMOGLOBIN 11.9 g/dL (12.0-16.0); LYMPHOCYTES # (AUTO) 1.4 10^3/uL (1.5-3.5); LYMPHOCYTES % (AUTO) 23.8 %; MEAN CORPUSCULAR HGB CONC 32.4 g/dL (32.0-36.0); MEAN CORPUSCULAR VOLUME 92.5 fL (81.0-99.0); MEAN PLATELET VOLUME 8.6 fL (7.9-10.8); MONOCYTES # (AUTO) 0.5 10^3/uL (0.0-1.0); MONOCYTES % (AUTO) 8.8 %; NEUTROPHILS # (AUTO) 3.7 10^3/uL (1.5-6.6); NEUTROPHILS % (AUTO) 63.9 %; PLT - PLATELET COUNT 214 10^3/uL (130-450); RED BLOOD COUNT 3.96 10^6/uL (4.20-5.40); RED CELL DISTRIBUTION WIDTH 14.5 % (12.0-15.0); WHITE BLOOD COUNT 5.8 x10^3/uL (4.8-10.8)
[2018-08-14 12:28] LABS: ALBUMIN 3.7 g/dL (3.2-5.5); ALBUMIN/GLOBULIN RATIO 1.4 (1.0-2.2); BILIRUBIN,TOTAL 0.7 mg/dL (0.2-1.0); CALCIUM 9.5 mg/dL (8.5-10.3); TOTAL PROTEIN 6.4 g/dL (6.7-8.2)
[2018-08-14 12:29] LABS: CREATININE 12.2 mg/dL (0.4-1.0)
== END 2018-08-14 11:27 | disposition home or self-care (01) ==
LOC: LAB 11:26
PROVIDERS: ATTEND Physician Assistant
DX: I48.2 Chronic atrial fibrillation (principal); D63.1 Anemia in chronic kidney disease; I50.9 Heart failure, unspecified; D68.9 Coagulation defect, unspecified; E83.52 Hypercalcemia
CPT/HCPCS: 36415; 80053; 84443; 85025; 85610

== ENCOUNTER 2018-08-20 08:00 | Outpatient (CLI) | payer MEDICARE, OTHER | END 2018-08-20 23:59 | disposition home or self-care (01) | LOC: LAB 08:00 | PROVIDERS: ATTEND Physician Assistant | DX: I48.2 Chronic atrial fibrillation (principal) | CPT/HCPCS: 85610 ==

== ENCOUNTER 2018-08-26 14:22 | Emergency (ER) | payer MEDICARE, OTHER ==
--- NOTE | 2018-08-26 14:52 | ED Physician Documentation ---
History of Present Illness - Stated complaint Stated Complaint: GLF RT ARM INJ - Chief complaint Chief Complaint: Trauma Hd/Nk - History obtained from History obtained from: Patient - History of Present Illness Timing: Prior to arrival - Additonal information Additional information: Patient is a 73-year-old female with history of hypertension, end-stage renal d isease, atrial fibrillation on Coumadin presenting after mechanical fall just prior to arrival. Patient was doing yard work and excellently tripped and fell forward mostly striking her right forehead, right elbow and forearm, and left knee. Patient denies loss of consciousness, as well as headache, vision changes, epistaxis, intraoral bleeding or tooth trauma, neck pain, back pain, rib pain, abdominal pain or dislodgment of peritoneal dialysis catheter, nausea, vomiting, or other concerns. Patient does complain of pain, swelling, bruising to right forehead, right elbow and forearm, as well as left knee. Patient's last INR was about a week and a half ago and was in therapeutic range. Otherwise, patient has been at her normal state of health without complaint. No other improving or worsening factors noted. Review of Systems Eyes: denies: Loss of vision Nose: denies: Epistaxis Throat: denies: Dental pain / toothache GI: denies: Abdominal Pain Skin: denies: Abrasion (s) Musculoskeletal: reports: Extremity pain. 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 : Dialysis HEENT: None Psych: None Musculoskeletal: None Derm: None - Past Surgical History Past Surgical History: Yes /CEMENTER OIL WELL: Other - Present Medications Home Medications: Ambulatory Orders Medication Instructions Recorded Confirmed Albuterol Sulfate [Ventolin Hfa] 2 puffs INH Q4-6H PRN 07/17/13 05/20/18 Calcitriol [Rocaltrol] 0.5 mcg PO DAILY 07/17/13 05/20/18 Fexofenadine HCl [Yolanda Allergy] 180 mg PO DAILY PRN 07/17/13 05/20/18 Fluticasone [Flonase] 1 sprays JODIE DAILY PRN 07/17/13 05/20/18 Hydralazine HCl 25 mg PO TID 07/17/13 05/20/18 Pravastatin Sodium 40 mg PO HS 07/17/13 05/20/18 Doxazosin [Cardura] 4 mg PO DAILY 04/23/18 05/20/18 Metoprolol Succinate 25 mg PO DAILY 04/23/18 05/20/18 Furosemide [Lasix] 1 tab PO DAILY 05/20/18 Warfarin [Coumadin] 1 tab PO DAILY 05/20/18 05/20/18 Hydrocodone/Acetaminophen 1 each PO Q6H PRN #14 tablet 08/26/18 [Hydrocodon-Acetaminophen 5-325] - Allergies Allergies/Adverse Reactions: Allergies Allergy/AdvReac Type Severity Reaction Status Date / Time cephalexin [From Keflex] Allergy Rash Verified 08/26/18 14:29 Penicillins Allergy Rash Verified 08/26/18 14:29 - Social History Does the pt smoke?: No Smoking Status: Never smoker Does the pt have substance abuse?: No - Immunizations Immunizations are current?: Yes - POLST Patient has POLST: No PD ED PE NORMAL - Vitals Vital signs reviewed: Yes - General General: Alert and oriented X 3, No acute distress, Well developed/nourished - HEENT HEENT: PERRL (Gross visual acuity intact, no nystagmus.), EOMI, Moist mucous membranes, Pharynx benign, Dentition benign. No: Atraumatic (Atraumatic except for small bruise at right evangelical without involvement of periorbital area. No other facial bone tenderness or instability, raccoon eyes, faria signs. No epistaxis or evidence of intraoral trauma.) - Neck Neck: No bony TTP - Cardiac Cardiac: RRR. No: No murmur (Holosystolic murmur) - Respiratory Respiratory: No respiratory distress, Clear bilaterally - Abdomen Abdomen: Soft, Non tender, Non distended - Back Back: No spinal TTP - Derm Derm: Warm and dry, No rash, Other (Scattered ecchymosis of variable age over all extremities. Mild bruising to right evangelical acutely.) - Extremities Extremities: No deformity, No tenderness to palpate (Tender directly over left knee, as well as right elbow and right forearm with joint swelling present in right elbow and left knee. Otherwise, extremities unremarkable. No significant change in sensation, strength, range of motion to any extremity.) - Neuro Neuro: Alert and oriented X 3, No motor deficit, No sensory deficit - Psych Psych: Normal mood, Normal affect Results - Vitals Vitals: Vital Signs - 24 hr 08/26/18 08/26/18 14:27 16:31 Temperature 36.7 C Heart Rate 71 68 Respiratory 18 18 Rate Blood Pressure 153/61 H 165/79 H O2 Saturation 97 100 Oxygen O2 Source Room air - Labs Labs: Laboratory Tests 08/26/18 08/26/18 08/26/18 15:00 15:00 15:00 WBC 5.2 RBC 3.70 L Hgb 11.2 L Hct 34.3 L MCV 92.7 MCH 30.3 MCHC 32.7 RDW 14.8 Plt Count 245 MPV 8.9 Neut # (Auto) 3.7 Lymph # (Auto) 0.8 L Clay # (Auto) 0.5 Eos # (Auto) 0.1 Baso # (Auto) 0.1 Absolute Nucleated RBC 0.00 Nucleated RBC % 0.1 PT 21.7 H INR 2.0 H APTT 28.9 Sodium 138 Potassium 3.9 Chloride 95 L Carbon Dioxide 24 Anion Gap 19.0 H BUN 48 H Creatinine 9.0 H* Estimated GFR (MDRD) 4 L Glucose 100 Calcium 8.8 Total Bilirubin 0.9 AST 25 ALT 18 Alkaline Phosphatase 44 Total Protein 6.1 L Albumin 3.4 Globulin 2.7 Albumin/Globulin Ratio 1.3 Lipase 34 Procedures - Splint (location) Upper extremity right Splint applied by: Tech Type of splint: Fiberglass, Sugar tong Other: Patient tolerated well, No complications, Neurovascular intact, Good alignment, Sling provided PD MEDICAL DECISION MAKING - ED course Complexity details: reviewed old records, reviewed results, re-evaluated patient, considered differential, d/w patient ED course: Patient presenting after mechanical fall just prior to arrival. Screening lab work obtained which was relatively unremarkable except for known abnormalities for patient including her end-stage renal disease. Upon comparison to recent labs, this is actually improved. Do not feel this is reflective of today's complaints or needs further evaluation at this time. CT head and max face returned without evidence of acute fracture or bleed. Left knee plain films did not find bony abnormalities but hemarthrosis.Plain films of right upper extremity also concerning with intra-articular oblique distal radius fracture and a lucency in the supracondylar area of the distal humerus that will require repeat x-rays. The intra-articular fracture require splinting today. Had lengthy discussion with and regarding all results including need for repeat x-rays to further evaluate supracondylar fracture. Also discussed holding Coumadin given hemarthrosis and other injuries at least for today and tomorrow until patient can contact primary care physician and further evaluate if effusion is resolving in the left knee. Also discussed splint care, pain control, and need for orthopedic follow-up. Patient voiced understanding and is comfortable with discharge plan. Departure - Departure Disposition: 01 Home, Self Care Clinical Impression: Distal radius fracture, right Qualifiers: Encounter type: initial encounter Fracture type: closed Fracture morphology: unspecified fracture morphology Qualified Code(s): S52.501A - Unspecified fracture of the lower end of right radius, initial encounter for closed fracture Condition: Good Instructions: ED Fx Upper Ext Follow-Up: Nik Logan MD [Primary Care Provider] - Tomorrow Oniel Crenshaw MD [Provider Admit Priv/Credential] - Tomorrow Prescriptions: Hydrocodone/Acetaminophen [Hydrocodon-Acetaminophen 5-325] 1 each PO Q6H PRN #14 tablet PRN Reason: pain Comments: Please continue all home medications as previously instructed except for warfarin. Please hold warfarin for tonight and tomorrow. This is to help relieve bleeding such as in your knee. Please take [place] as prescribed for pain relief. Do not combine with Tylenol, alcohol, or driving. If taking [place] regularly, recommend use of stool softener or laxative to avoid constipation. If not taking [place], may use Tylenol.Please contact your primary care physician tomorrow to discuss injuries and warfarin dosing. Please contact orthopedic surgery tomorrow to establish outpatient follow-up for known fractures. You will likely need repeat x-rays in the next 2 weeks to further evaluate your elbow. Return to ED sooner if experience worsening symptoms or have other concerns.
[2018-08-26 15:12] LABS: BASOPHILS # (AUTO) 0.1 10^3/uL (0.0-0.1); BASOPHILS % (AUTO) 1.7 %; EOSINOPHILS # (AUTO) 0.1 10^3/uL (0.0-0.7); HGB - HEMOGLOBIN 11.2 g/dL (12.0-16.0); LYMPHOCYTES # (AUTO) 0.8 10^3/uL (1.5-3.5); MEAN CORPUSCULAR HEMOGLOBIN 30.3 pg (27.0-31.0); MEAN CORPUSCULAR HGB CONC 32.7 g/dL (32.0-36.0); MEAN CORPUSCULAR VOLUME 92.7 fL (81.0-99.0); MEAN PLATELET VOLUME 8.9 fL (7.9-10.8); MONOCYTES # (AUTO) 0.5 10^3/uL (0.0-1.0); MONOCYTES % (AUTO) 9.9 %; NEUTROPHILS # (AUTO) 3.7 10^3/uL (1.5-6.6); NEUTROPHILS % (AUTO) 71.4 %; PLT - PLATELET COUNT 245 10^3/uL (130-450); RED CELL DISTRIBUTION WIDTH 14.8 % (12.0-15.0); WHITE BLOOD COUNT 5.2 x10^3/uL (4.8-10.8)
[2018-08-26 15:19] LABS: PT - PROTHROMBIN TIME 21.7 secs (9.9-12.6)
[2018-08-26 15:26] LABS: PARTIAL THROMBOPLASTIN TIME 28.9 secs (24.9-33.3)
[2018-08-26 15:27] LABS: ALBUMIN 3.4 g/dL (3.2-5.5); ALBUMIN/GLOBULIN RATIO 1.3 (1.0-2.2); BILIRUBIN,TOTAL 0.9 mg/dL (0.2-1.0); CALCIUM 8.8 mg/dL (8.5-10.3); TOTAL PROTEIN 6.1 g/dL (6.7-8.2)
--- NOTE | 2018-08-26 15:51 | CT Report ---
Reason: fall, struck head, on Coumadin Procedure Date: 08/26/2018 Accession Number: [id number] / [id number] Procedure: CT - HEAD WO CPT Code: FULL RESULT: EXAM: CT HEAD EXAM DATE: 08/26/2018 03:14 PM. CLINICAL HISTORY: 73-year-old female. Fall, struck head, on Coumadin. COMPARISON: CT head the 2015 TECHNIQUE: Multiaxial CT images were obtained from the foramen magnum to the vertex. Reformats: Sagittal and coronal. IV contrast: None. In accordance with CT protocol optimization, one or more of the following dose reduction techniques were utilized for this exam: automated exposure control, adjustment of mA and/or KV based on patient size, or use of iterative reconstructive technique. FINDINGS: Parenchyma: No intraparenchymal hemorrhage. No evidence of mass, midline shift, or CT findings of infarction. Colin-white differentiation is distinct. Stable appearance of the hypoplastic vermis. Extraaxial Spaces: Normal for age. No subdural or epidural collections identified. Ventricles: Normal in size and position. Sinuses and Orbits: Imaged paranasal sinuses, orbits, and mastoids show no significant abnormality. Bones: No evidence of fracture or calvarial defect. Other: None. IMPRESSION: No CT evidence of acute intracranial abnormality, specifically no CT evidence of acute infarct, intracranial hemorrhage, mass effect, midline shift, or hydrocephalus. RADIA
--- NOTE | 2018-08-26 15:53 | CT Report ---
Reason: fall struck head by right orbit Procedure Date: 08/26/2018 Accession Number: [id number] / [id number] Procedure: CT - MAXILLOFACIAL WO CPT Code: FULL RESULT: EXAM: CT MAXILLOFACIAL WITHOUT CONTRAST EXAM DATE: 08/26/2018 03:26 PM. CLINICAL HISTORY: Fall struck head by right orbit. COMPARISONS: SINUSES 03/31/2018 9:54 AM HEAD W/O 08/26/2018 3:14 PM. TECHNIQUE: Thin-section axial images were acquired of the face without contrast. Post-processing: Coronal and sagittal reformats. Other: None. In accordance with CT protocol optimization, one or more of the following dose reduction techniques were utilized for this exam: automated exposure control, adjustment of mA and/or KV based on patient size, or use of iterative reconstructive technique. FINDINGS: Soft Tissue: The infratemporal fossa and parapharyngeal spaces are unremarkable. Orbits: Symmetric and unremarkable. Bones: No fracture or bone lesion. Temporomandibular Joints: The temporomandibular joints are symmetric and normally located. Sinuses: Paranasal sinuses are clear. There is mild left mastoiditis. Other: None. IMPRESSION: 1. No evidence of displaced facial fracture. 2. There is mild left mastoiditis. RADIA
--- NOTE | 2018-08-26 15:54 | XRAY Report ---
Reason: fall,pain, swelling Procedure Date: 08/26/2018 Accession Number: [id number] / [id number] Procedure: XR - Elbow 3 View RT CPT Code: FULL RESULT: EXAM: RIGHT ELBOW RADIOGRAPHY EXAM DATE: 08/26/2018 03:36 PM. CLINICAL HISTORY: Fall,pain, swelling. COMPARISON: XR ELBOW 2 VIEWS 10/27/2009 4:41 PM. TECHNIQUE: 3 views. FINDINGS: Bones: A transverse lucent line is seen through the supracondylar aspect of the right distal humerus, predominantly seen on extended elbow view. This may represent a nondisplaced fracture. Joints: A moderate right elbow joint effusion noted. Soft Tissues: Normal. No soft tissue swelling. IMPRESSION: A transverse lucent line through the supracondylar aspect of the right distal humerus, (predominantly seen on extended elbow view). This may represent a nondisplaced fracture. A moderate right elbow joint effusion. To be correlated clinically. A repeat radiograph can be performed in 2 weeks for better visualization, if fracture is suspected. RADIA
--- NOTE | 2018-08-26 15:59 | XRAY Report ---
Reason: fall, pain, swelling Procedure Date: 08/26/2018 Accession Number: [id number] / [id number] Procedure: XR - Forearm RT CPT Code: FULL RESULT: EXAM: RIGHT FOREARM RADIOGRAPHY EXAM DATE: 08/26/2018 03:37 PM. CLINICAL HISTORY: Fall, pain, swelling. COMPARISON: None. TECHNIQUE: 2 views. FINDINGS: Bones: Significan osteopenia noted. An acute displaced intra-articular oblique fracture is seen through the distal right radius. Joints: Radiocarpal joints are well aligned. Soft Tissues: Normal. No soft tissue swelling. IMPRESSION: Significant osteopenia with an acute displaced intra-articular oblique fracture through distal right radius. Dedicated right wrist radiography is recommended for further assessment. RADIA
--- NOTE | 2018-08-26 16:28 | XRAY Report ---
Reason: fall, pain, swelling Procedure Date: 08/26/2018 Accession Number: [id number] / [id number] Procedure: XR - Knee 4 View LT CPT Code: FULL RESULT: EXAM: LEFT KNEE RADIOGRAPHY EXAM DATE: 08/26/2018 03:37 PM. CLINICAL HISTORY: Fall, pain, swelling. COMPARISON: XR KNEE 3 VIEW 03/03/2008 4:25 PM. TECHNIQUE: 3 views. FINDINGS: Bones: Osteopenia noted. No fractures or bone lesions. Joints: A moderate left hemarthrosis noted. No subluxations. Soft Tissues: Normal. No soft tissue swelling. IMPRESSION: A moderate left hemarthrosis. No obvious acute displaced fracture or malalignment. Further evaluation to be considered on CT or MRI of the left knee. RADIA
[2018-08-26 16:32] VITALS: BP 165/79
== END 2018-08-26 17:11 | disposition home or self-care (01) ==
LOC: ED 14:22
DX: S52.571A Other intraarticular fracture of lower end of right radius, initial encounter for closed fracture (principal); S00.83XA Contusion of other part of head, initial encounter; M25.062 Hemarthrosis, left knee; W01.0XXA Fall on same level from slipping, tripping and stumbling without subsequent striking against object, initial encounter; Y93.H2 Activity, gardening and landscaping; I12.0 Hypertensive chronic kidney disease with stage 5 chronic kidney disease or end stage renal disease; N18.6 End stage renal disease; I48.91 Unspecified atrial fibrillation; Z79.01 Long term (current) use of anticoagulants; R01.1 Cardiac murmur, unspecified
CPT/HCPCS: 29125; 70450; 70486; 80053; 83690; 85025; 85610; 85730; 99283; 99284

== ENCOUNTER 2018-08-31 10:55 | Outpatient (CLI) | payer MEDICARE, OTHER ==
--- NOTE | 2018-08-31 21:17 | CT Report ---
Reason: RT ELBOW FRACTURE Procedure Date: 08/31/2018 Accession Number: [id number] / [id number] Procedure: CT - UPPER EXTREMITY WO - RT CPT Code: FULL RESULT: EXAM: RIGHT ELBOW CT WITHOUT CONTRAST EXAM DATE: 08/31/2018 11:47 AM. CLINICAL HISTORY: Right elbow fracture. COMPARISON: UPPER EXTREMITY RIGHT W/O 08/31/2018 11:22 AM. ELBOW 3 VIEW RT 08/26/2018 3:17 PM. TECHNIQUE: Thin-section axial images were acquired of the elbow without contrast. Post-processing: Coronal and sagittal reformats. Other: None. In accordance with CT protocol optimization, one or more of the following dose reduction techniques were utilized for this exam: automated exposure control, adjustment of mA and/or KV based on patient size, or use of iterative reconstructive technique. FINDINGS: Bones: History of fracture of the distal humerus. Vertically oriented fracture between the trochlea and capitellum. Complete horizontal fracture through the distal humeral metaphysis. About 45 degrees anterior angulation of the distal capitellum with respect to the distal humerus. Trochlea shows about 30 degrees anterior angulation. No intra-articular loose bodies. Joints: No dislocation. Musculature: Normal. No fatty atrophy. Other: Surrounding soft tissue swelling. Fiberglass splint is in place. IMPRESSION: 1. There is a vertically oriented fracture between the trochlea and capitellum which joins with a complete horizontal fracture through the distal humeral metaphysis. 2. 45 degrees anterior angulation of the distal capitellum with respect to the distal humerus. Trochlea shows about 30 degrees anterior angulation. No intra-articular loose bodies. No dislocation. RADIA
== END 2018-08-31 10:56 | disposition home or self-care (01) ==
LOC: DI 10:55
PROVIDERS: ATTEND Orthopaedic Surgery
DX: S42.491D Other displaced fracture of lower end of right humerus, subsequent encounter for fracture with routine healing (principal)

== ENCOUNTER 2018-09-04 15:56 | Outpatient (CLI) | payer MEDICARE, OTHER | END 2018-09-04 15:57 | disposition home or self-care (01) | LOC: LAB 15:56 | PROVIDERS: ATTEND Internal Medicine Nephrology | DX: I48.2 Chronic atrial fibrillation (principal) | CPT/HCPCS: 85610 ==

== ENCOUNTER 2018-09-18 08:00 | Outpatient (CLI) | payer MEDICARE, OTHER | END 2018-09-18 23:59 | disposition home or self-care (01) | LOC: LAB 08:00 | PROVIDERS: ATTEND Physician Assistant | DX: I48.2 Chronic atrial fibrillation (principal) | CPT/HCPCS: 85610 ==

== ENCOUNTER 2018-09-30 | Emergency (ER) | payer MEDICARE, OTHER | END 2018-09-30 18:28 | disposition home or self-care (01) | DX: S82.044A Nondisplaced comminuted fracture of right patella, initial encounter for closed fracture (principal); W01.0XXA Fall on same level from slipping, tripping and stumbling without subsequent striking against object, initial encounter; S52.502A Unspecified fracture of the lower end of left radius, initial encounter for closed fracture; S52.612A Displaced fracture of left ulna styloid process, initial encounter for closed fracture; Y93.01 Activity, walking, marching and hiking; I10 Essential (primary) hypertension; Z79.01 Long term (current) use of anticoagulants | CPT/HCPCS: 29125; 36415; 70450; 73080; 73110; 73564; 73700; 80053; 83690; 85025; 85610; 90471; 90715; 99284; A9270 ==

== ENCOUNTER 2018-09-30 10:12 | Emergency (ER) | payer MEDICARE, OTHER ==
[2018-09-30] MEDS ORDERED: MORPHINE 2 MG/ML CARPUJECT IVP STA (10:23)
[2018-09-30 10:39] LABS: BASOPHILS # (AUTO) 0.1 10^3/uL (0.0-0.1); BASOPHILS % (AUTO) 1.5 %; EOSINOPHILS # (AUTO) 0.3 10^3/uL (0.0-0.7); EOSINOPHILS % (AUTO) 5.1 %; HGB - HEMOGLOBIN 8.4 g/dL (12.0-16.0); LYMPHOCYTES # (AUTO) 0.8 10^3/uL (1.5-3.5); LYMPHOCYTES % (AUTO) 15.2 %; MEAN CORPUSCULAR HGB CONC 32.7 g/dL (32.0-36.0); MEAN CORPUSCULAR VOLUME 91.8 fL (81.0-99.0); MEAN PLATELET VOLUME 10.6 fL (7.9-10.8); MONOCYTES # (AUTO) 0.5 10^3/uL (0.0-1.0); MONOCYTES % (AUTO) 9.1 %; NEUTROPHILS # (AUTO) 3.6 10^3/uL (1.5-6.6); NEUTROPHILS % (AUTO) 68.7 %; PLT - PLATELET COUNT 222 10^3/uL (130-450); RED CELL DISTRIBUTION WIDTH 15.1 % (12.0-15.0); WHITE BLOOD COUNT 5.3 x10^3/uL (4.8-10.8)
[2018-09-30 10:42] LABS: INR 2.1 (0.8-1.2)
--- NOTE | 2018-09-30 10:56 | ED Physician Documentation ---
History of Present Illness - Stated complaint Stated Complaint: GLF - Chief complaint Chief Complaint: Ext Problem - History obtained from History obtained from: Patient - History of Present Illness Timing: Today, How many hours ago (1) Pain level max: 8 Pain level now: 8 - Additonal information Additional information: 73 year old female, trip and fall today. States pain to the L wrist and R knee. Worse with movement and better with rest. has been walking since the event. No head injury. no loc. no neck or back pain. 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 : Dialysis HEENT: None Psych: None Musculoskeletal: None Derm: None Other Past Medical History: ckd - Past Surgical History Past Surgical History: Yes /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 CAPTAIN: Other - Present Medications Home Medications: Ambulatory Orders Medication Instructions Recorded Confirmed Albuterol Sulfate [Ventolin Hfa] 2 puffs INH Q4-6H PRN 07/17/13 05/20/18 Calcitriol [Rocaltrol] 0.5 mcg PO DAILY 07/17/13 05/20/18 Fexofenadine HCl [Yolanda Allergy] 180 mg PO DAILY PRN 07/17/13 05/20/18 Fluticasone [Flonase] 1 sprays JODIE DAILY PRN 07/17/13 05/20/18 Hydralazine HCl 25 mg PO TID 07/17/13 05/20/18 Pravastatin Sodium 40 mg PO HS 07/17/13 05/20/18 Doxazosin [Cardura] 4 mg PO DAILY 04/23/18 05/20/18 Metoprolol Succinate 25 mg PO DAILY 04/23/18 05/20/18 Furosemide [Lasix] 1 tab PO DAILY 05/20/18 Warfarin [Coumadin] 1 tab PO DAILY 05/20/18 05/20/18 Hydrocodone/Acetaminophen 1 each PO Q6H PRN #14 tablet 08/26/18 [Hydrocodon-Acetaminophen 5-325] Bacitracin Zinc Oint 1 applic TOP BID #1 tube 09/30/18 Oxycodone HCl/Acetaminophen 1 - 2 each PO Q6H PRN #14 tablet 09/30/18 [Percocet 5-325 mg Tablet] - Allergies Allergies/Adverse Reactions: Allergies Allergy/AdvReac Type Severity Reaction Status Date / Time cephalexin [From Keflex] Allergy Rash Verified 09/30/18 10:22 Penicillins Allergy Rash Verified 09/30/18 10:22 - Social History Does the pt smoke?: No Smoking Status: Never smoker Does the pt drink ETOH?: Yes Does the pt have substance abuse?: No - Immunizations Immunizations are current?: Yes - POLST Patient has POLST: No PD ED PE NORMAL - Vitals Vital signs reviewed: Yes - General General: Alert and oriented X 3, No acute distress - HEENT HEENT: Atraumatic, PERRL, Moist mucous membranes - Neck Neck: Supple, no meningeal sign, No bony TTP - Cardiac Cardiac: RRR, Strong equal pulses - Respiratory Respiratory: No respiratory distress, Clear bilaterally - Abdomen Abdomen: Soft, Non tender, Non distended - Back Back: No spinal TTP - Derm Derm: Warm and dry - Extremities Extremities: Other (abrasion R knee and R elbow, L wrist deformity. NVI. TTP over the dorsum of the L wrist. TTP R knee tibial plateua. limited ROM 2/2 p ain. ) - Neuro Neuro: Alert and oriented X 3 - Psych Psych: Normal mood, Normal affect Results - Vitals Vitals: Vital Signs - 24 hr 09/30/18 09/30/18 10:18 12:53 Temperature 36.4 C L 36.5 C Heart Rate 73 67 Respiratory 18 12 Rate Blood Pressure 133/64 H 166/75 H O2 Saturation 100 99 Oxygen O2 Source Room air - Labs Labs: Laboratory Tests 09/30/18 09/30/18 09/30/18 10:35 10:35 10:35 WBC 5.3 RBC 2.80 L Hgb 8.4 L Hct 25.7 L MCV 91.8 MCH 30.0 MCHC 32.7 RDW 15.1 H Plt Count 222 MPV 10.6 Neut # (Auto) 3.6 Lymph # (Auto) 0.8 L Lewis # (Auto) 0.5 Eos # (Auto) 0.3 Baso # (Auto) 0.1 Absolute Nucleated RBC 0.00 Nucleated RBC % 0.0 PT 23.0 H INR 2.1 H Sodium 136 Potassium 4.4 Chloride 93 L Carbon Dioxide 22 Anion Gap 21.0 H BUN 71 H Creatinine 11.2 H* Estimated GFR (MDRD) 3 L Glucose 112 H Calcium 9.6 Total Bilirubin 0.9 AST 27 ALT 18 Alkaline Phosphatase 53 Total Protein 6.4 L Albumin 3.1 L Globulin 3.3 Albumin/Globulin Ratio 0.9 L Lipase 123 H - Rads (name of study) R knee xray Radiology: Prelim report reviewed, EMP read contemporaneously, See rad report (Minimally depressed lateral tibial plateau fracture suspected with associated lipohemarthrosis. Findings may reflect a Schatzker type III injury, consider CT for further evaluation. ) L wrist xray Radiology: Prelim report reviewed, EMP read contemporaneously, See rad report (Intra-articular mildly displaced distal left radial fracture. 2. Ulnar styloid fracture. 3. Probable chronic ligamentous disruption at the scapholunate joint and distal to the scaphoid as well. ) CT head Radiology: Prelim report reviewed, EMP read contemporaneously, See rad report (Generalized age-related cortical atrophic changes without evidence of acute intracranial abnormality. ) R elbow xray Radiology: Prelim report reviewed, EMP read contemporaneously, See rad report (Subacute fracture with bony remodeling involving lateral humeral metaphysis and epicondyles. Persistent soft tissue swelling and joint effusion. ) Procedures - Splint (location) L wrist Splint applied by: Physician, Tech Type of splint: Short arm, Volar cock up Other: Patient tolerated well, No complications, Neurovascular intact PD MEDICAL DECISION MAKING - ED course Complexity details: reviewed results, re-evaluated patient, considered differential, d/w patient, d/w water resource consultant ED course: 73-year-old female presents to the emergency department after a fall. Found to have a left distal radius fracture. This was placed in a volar splint after discussion with Dr. Crenshaw, orthopedics. She has her right elbow in a brace from a prior fracture there. She also has a skin tear to the right elbow and this was covered with Mepitel. Head CT was undertaken for potential intracranial hemorrhage from her fall as she is on warfarin. Concern for tearing of the dural bridging veins. She also had right knee pain, and I saw the read of a possible minimally displaced fracture after the patient left the department, therefore I called her and her and they will return for further evaluation. Neurovascularly intact. Patient counseled that the left wrist injury may need surgical fixation. Did not want to immobilize both of her arms. Patient and family counseled regarding signs and symptoms for which I believe and urgent re-evaluation would be necessary. Patient with good understanding of and agreement to plan and is comfortable going home at this time This document was made in part using voice recognition software. While efforts are made to proofread this document, sound alike and grammatical errors may occur. Departure - Departure Disposition: 01 Home, Self Care Clinical Impression: Avulsion of skin of elbow Qualifiers: Encounter type: initial encounter Laterality: right Qualified Code(s): S51.001A - Unspecified open wound of right elbow, initial encounter Distal radius fracture, left Qualifiers: Encounter type: initial encounter Fracture type: closed Fracture morphology: unspecified fracture morphology Qualified Code(s): S52.502A - Unspecified fracture of the lower end of left radius, initial encounter for closed fracture Condition: Good Instructions: ED Fx Upper Ext, ED Avulsion Dermal Follow-Up: Kelly Swann PA [Primary Care Provider] - Within 1 week Prescriptions: Bacitracin Zinc Oint 1 applic TOP BID #1 tube Oxycodone HCl/Acetaminophen [Percocet 5-325 mg Tablet] 1 - 2 each PO Q6H PRN #14 tablet PRN Reason: pain Comments: Return if you worsen. Stay in the splint until released by orthopedics. This fracture may require surgery. We elected not to put you in a full arm splint at this time because of the limited mobility of your other arm. Return if you notice redness, swelling, drainage from the wound. You can change the outer bandage. Leave the Mepitel in place for 10 -14 days. Do not drink alcohol or drive while on narcotic pain medicine. Note that many narcotic pain relievers also contain tylenol/acetaminophen. Please ensure that your total dose of acetaminophen from all sources does not exceed 3 grams (3000mg) per day. You may constipated on this medication, take a stool softener such as "Colace" t wice a day while you are on it. Also recommend a [id number] laxative such as senna or MiraLAX any day that you do not have a bowel movement. If you received narcotic pain medication in the emergency department, do not drive or operate machinery for the next 24 hours. Discharge Date/Time: 09/30/18 13:41
[2018-09-30] MEDS ORDERED: oxyCODONE 5 MG TABLET PO STA (10:59)
[2018-09-30 11:00] LABS: BILIRUBIN,TOTAL 0.9 mg/dL (0.2-1.0); CALCIUM 9.6 mg/dL (8.5-10.3)
[2018-09-30 11:01] LABS: ALBUMIN 3.1 g/dL (3.2-5.5); ALBUMIN/GLOBULIN RATIO 0.9 (1.0-2.2); TOTAL PROTEIN 6.4 g/dL (6.7-8.2)
[2018-09-30 11:03] LABS: CREATININE 11.2 mg/dL (0.4-1.0)
--- NOTE | 2018-09-30 12:46 | XRAY Report ---
Reason: fall, L wrist pain Procedure Date: 09/30/2018 Accession Number: [id number] / [id number] Procedure: XR - Wrist 4 View LT CPT Code: FULL RESULT: EXAM: LEFT WRIST RADIOGRAPHY EXAM DATE: 09/30/2018 12:16 PM. CLINICAL HISTORY: Fall, left wrist pain. COMPARISON: None. TECHNIQUE: 4 views. FINDINGS: Bones: Intra-articular mildly impacted and displaced distal left radial fracture without significant angulation. Displaced ulnar styloid fracture. No other definitive fracture seen. Lucency in the hamate may be an enchondroma or subchondral cyst. Joint space widening distal to the scaphoid, consistent with ligamentous disruption, probably chronic. Also probable chronic widening of the scapholunate distance. Joints: No dislocation. Soft Tissues: Soft tissue swelling. Peripheral vascular disease. IMPRESSION: 1. Intra-articular mildly displaced distal left radial fracture. 2. Ulnar styloid fracture. 3. Probable chronic ligamentous disruption at the scapholunate joint and distal to the scaphoid as well. RADIA
--- NOTE | 2018-09-30 12:49 | CT Report ---
Reason: fall, head injury Procedure Date: 09/30/2018 Accession Number: [id number] / [id number] Procedure: CT - HEAD WO CPT Code: FULL RESULT: EXAM: CT HEAD EXAM DATE: 09/30/2018 12:18 PM. CLINICAL HISTORY: Fall, head injury. COMPARISON: HEAD W/O 08/26/2018 3:14 PM. TECHNIQUE: Multiaxial CT images were obtained from the foramen magnum to the vertex. Reformats: Sagittal and coronal. IV contrast: None. In accordance with CT protocol optimization, one or more of the following dose reduction techniques were utilized for this exam: automated exposure control, adjustment of mA and/or KV based on patient size, or use of iterative reconstructive technique. FINDINGS: Parenchyma: No intraparenchymal hemorrhage. No evidence of mass, midline shift, or CT findings of acute infarction. Colin-white differentiation is distinct. Diffuse chronic microangiopathic white matter changes are evident. Extraaxial Spaces: Normal for age. No subdural or epidural collections identified. Ventricles: The ventricles and cortical sulci are enlarged, consistent with age-related tissue loss. Sinuses and orbits: Imaged paranasal sinuses, orbits, and mastoids show no significant abnormality. Bones: No evidence of fracture or calvarial defect. Other: Extensive calcifications are present in the cavernous carotid and vertebral arteries. IMPRESSION: Generalized age-related cortical atrophic changes without evidence of acute intracranial abnormality. RADIA
--- NOTE | 2018-09-30 12:50 | XRAY Report ---
Reason: fall, R knee pain Procedure Date: 09/30/2018 Accession Number: [id number] / [id number] Procedure: XR - Knee 4 View RT CPT Code: FULL RESULT: EXAM: RIGHT KNEE RADIOGRAPHY EXAM DATE: 09/30/2018 12:15 PM. CLINICAL HISTORY: Fall, R knee pain. COMPARISON: KNEE 4 VIEW LT 08/26/2018 3:17 PM. TECHNIQUE: 4 views. FINDINGS: Bones: Lateral tibial plateau fracture with minimal depression suspected. No other fracture seen in this osteopenic patient. Joints: Lipohemarthrosis. No malalignment. Minimal degenerative changes. Soft Tissues: Peripheral vascular disease. No soft tissue swelling. IMPRESSION: Minimally depressed lateral tibial plateau fracture suspected with associated lipohemarthrosis. Findings may reflect a Schatzker type III injury, consider CT for further evaluation. RADIA
[2018-09-30 12:54] VITALS: BP 166/75
[2018-09-30] MEDS ORDERED: BACITRACIN OINT TOP STA (13:19)
[2018-09-30] MEDS ORDERED: TETANUS/DIPHTHERIA/PERTUSSIS 0.5 ML SYRINGE IM ONE (13:19)
[2018-09-30] MEDS ORDERED: BACITRACIN OINT TOP ONE (13:24)
--- NOTE | 2018-09-30 14:10 | XRAY Report ---
Reason: fall, R elbow pain Procedure Date: 09/30/2018 Accession Number: [id number] / [id number] Procedure: XR - Elbow 3 View RT CPT Code: FULL RESULT: EXAM: RIGHT ELBOW RADIOGRAPHY EXAM DATE: 09/30/2018 12:16 PM. CLINICAL HISTORY: Fall, R elbow pain. COMPARISON: ELBOW 3 VIEW RT 08/26/2018 3:17 PM. TECHNIQUE: 3 views. FINDINGS: Bones: There is an oblique fracture through the lateral epicondyle and lateral humeral metaphysis with evidence of bony remodeling. No proximal radius or ulna fracture. Joints: Alignment appears satisfactory. Soft Tissues: There is an elbow joint effusion. There is persistent dorsal soft tissue swelling. IMPRESSION: Subacute fracture with bony remodeling involving lateral humeral metaphysis and epicondyles. Persistent soft tissue swelling and joint effusion. RADIA
== END 2018-09-30 13:41 | disposition home or self-care (01) ==
LOC: ED 10:12
DX: S52.502A Unspecified fracture of the lower end of left radius, initial encounter for closed fracture (principal); S52.612A Displaced fracture of left ulna styloid process, initial encounter for closed fracture; W01.0XXA Fall on same level from slipping, tripping and stumbling without subsequent striking against object, initial encounter; Y93.01 Activity, walking, marching and hiking; I10 Essential (primary) hypertension; Z79.01 Long term (current) use of anticoagulants
CPT/HCPCS: 29125; 36415; 70450; 80053; 83690; 85025; 85610; 90471

== ENCOUNTER 2018-10-08 14:10 | Outpatient (CLI) | payer MEDICARE, OTHER | END 2018-10-08 14:11 | disposition home or self-care (01) | LOC: LAB 14:10 | PROVIDERS: ATTEND Internal Medicine Nephrology | DX: I48.2 Chronic atrial fibrillation (principal) | CPT/HCPCS: 85610 ==

== ENCOUNTER 2018-10-30 16:10 | Outpatient (CLI) | payer MEDICARE, OTHER | END 2018-10-30 16:11 | disposition home or self-care (01) | LOC: LAB 16:10 | PROVIDERS: ATTEND Internal Medicine Nephrology | DX: I50.32 Chronic diastolic (congestive) heart failure (principal); D70.9 Neutropenia, unspecified | CPT/HCPCS: 36415; 83880; 85018 ==

== ENCOUNTER 2018-12-04 13:31 | Outpatient (CLI) | payer MEDICARE, OTHER ==
[2018-12-04 13:48] LABS: INR 1.1 (0.8-1.2); PT - PROTHROMBIN TIME 12.8 secs (9.9-12.6)
== END 2018-12-04 13:32 | disposition home or self-care (01) ==
LOC: LAB 13:31
PROVIDERS: ATTEND Internal Medicine Nephrology
DX: I48.2 Chronic atrial fibrillation (principal)
CPT/HCPCS: 36415; 85610

== ENCOUNTER 2019-01-28 09:54 | Outpatient (CLI) | payer MEDICARE, OTHER | END 2019-01-28 09:55 | disposition home or self-care (01) | LOC: DI 09:54 | PROVIDERS: ATTEND Internal Medicine Cardiovascular Disease | DX: R06.00 Dyspnea, unspecified (principal); I08.0 Rheumatic disorders of both mitral and aortic valves | CPT/HCPCS: 93306 ==

== ENCOUNTER 2019-04-04 12:37 | Outpatient (CLI) | payer MEDICARE, OTHER ==
[2019-04-04 13:29] LABS: CALCIUM 9.1 mg/dL (8.5-10.3)
[2019-04-04 13:30] LABS: CREATININE 11.4 mg/dL (0.4-1.0)
== END 2019-04-04 12:38 | disposition home or self-care (01) ==
LOC: LAB 12:37
PROVIDERS: ATTEND Internal Medicine Cardiovascular Disease
DX: I10 Essential (primary) hypertension (principal)
CPT/HCPCS: 36415; 80048

== ENCOUNTER 2019-07-19 09:47 | Outpatient (CLI) | payer MEDICARE, OTHER ==
--- NOTE | 2019-07-20 13:48 | Ultrasound Report ---
Reason: ATHEROSCIEROSIS OF DOUGLAS ARTERIES Procedure Date: 07/19/2019 Accession Number: [id number] / [id number] Procedure: US - Ankle Brachial Index CPT Code: Final Report FULL RESULT: EXAM: BILATERAL ANKLE/BRACHIAL INDEX EXAM DATE: 07/19/2019 09:51 AM. CLINICAL HISTORY: Atherosclerosis OF DOUGLAS ARTERIES. History of hypertension and hyperlipidemia. Intermittent claudication, 1-2 blocks over 2 months. COMPARISON: None. TECHNIQUE: A blood pressure cuff and pulse volume recording Doppler ultrasound was used to evaluate the arterial pressures in the arms and ankle. No images were acquired. FINDINGS: Brachial pressure: Right brachial artery: 169 mmHg, index 1.00 Left brachial artery: 154 mmHg, index 1.00 Right ankle pressure: 74 mmHg. Left ankle pressure: 66 mmHg. Limited spectral Doppler ultrasound of the lower extremities, with monophasic Doppler waveforms. Right posterior tibial artery peak systolic velocity 10 cm/s. Right dorsalis pedis artery peak systolic velocity 21 cm/s. Left posterior tibial artery peak systolic velocity 18 cm/s. Left dorsalis pedis artery peak systolic velocity 12 cm/s. IMPRESSION: 1. Right ankle/brachial index: 0.4. 2. Left ankle/brachial index: 0.4. ANKLE/BRACHIAL INDEX REFERENCE STANDARDS 1.0-1.4: Normal 0.90-0.99: Borderline < 0.9: Abnormal [facility]
== END 2019-07-19 09:48 | disposition home or self-care (01) ==
LOC: DI 09:47
PROVIDERS: ATTEND Family Medicine
DX: I70.219 Atherosclerosis of native arteries of extremities with intermittent claudication, unspecified extremity (principal)
CPT/HCPCS: 93922

== ENCOUNTER 2019-11-22 13:10 | Outpatient (CLI) | payer MEDICARE, OTHER | END 2019-11-22 13:11 | disposition home or self-care (01) | LOC: DI 13:10 | PROVIDERS: ATTEND Internal Medicine Cardiovascular Disease | DX: I50.9 Heart failure, unspecified (principal); I35.0 Nonrheumatic aortic (valve) stenosis | CPT/HCPCS: 93306 ==

== ENCOUNTER 2020-03-03 09:28 | Emergency (ER) | payer MEDICARE, OTHER ==
[2020-03-03] MEDS ORDERED: LIDOCAINE-EPINEPH-TETRACAINE 3 ML SYRINGE TOP STA (09:56)
[2020-03-03] MEDS ORDERED: OXYMETAZOLINE HCL 100 SPRAYS BOTTLE NAS STA (09:56)
[2020-03-03] MEDS ORDERED: SILVER NITRATE APPLICATOR TOP STA (10:42)
--- NOTE | 2020-03-03 11:56 | ED Physician Documentation ---
PD HPI HEENT - Stated complaint Stated Complaint: NOSE BLEED - Chief complaint Chief Complaint: Heent - History obtained from History obtained from: Patient - History of Present Illness Timing - onset: How many days ago (3) Timing - duration: Days (3) Timing - details: Gradual onset, Still present Location: Nose Worsens: Everything Associated symptoms: No: Fever, Congestion, Rhinorrhea, Trismus, Cough Similar symptoms before: Diagnosis (epistaxis) Recently seen: Not recently seen - Additional information Additional information: 74-year-old female on peritoneal dialysis and not on any anticoagulation has developed a nosebleed from the right nares 2 days ago and now from the left nares. She has not been able to control bleeding today and comes into the emergency department for evaluation. Review of Systems Constitutional: denies: Fever Eyes: denies: Decreased vision Ears: denies: Ear pain Nose: reports: Epistaxis. denies: Rhinorrhea / runny nose Throat: denies: Sore throat Cardiac: denies: Chest pain / pressure, Palpitations Respiratory: denies: Dyspnea, Cough GI: denies: Abdominal Pain, Vomiting PD PAST MEDICAL HISTORY - Past Medical History Cardiovascular: Hypertension, High cholesterol, Peripheral Vascular Disease, Atrial fibrillation Respiratory: Asthma Neuro: None Endocrine/Autoimmune: None GI: None PARK INTERPRETER: None : Dialysis, Renal insuffiency HEENT: None Psych: None Musculoskeletal: None Derm: None - Past Surgical History Past Surgical History: Yes /PARK INTERPRETER: Other - Present Medications Home Medications: Ambulatory Orders Medication Instructions Recorded Confirmed Albuterol Sulfate [Ventolin Hfa] 2 puffs INH Q4-6H PRN 07/17/13 03/03/20 Fexofenadine HCl [Yolanda Allergy] 180 mg PO DAILY PRN 07/17/13 03/03/20 Pravastatin Sodium 40 mg PO HS 07/17/13 03/03/20 calcitrioL [Rocaltrol] 0.5 mcg PO DAILY 07/17/13 03/03/20 Metoprolol Succinate 25 mg PO BID 04/23/18 03/03/20 Furosemide [Lasix] 1 tab PO DAILY 05/20/18 03/03/20 Losartan Potassium [Cozaar] 100 mg PO DAILY 03/03/20 03/03/20 Promethazine [Phenergan] 12.5 mg PO Q6H PRN 03/03/20 03/03/20 amLODIPine [Norvasc] 5 mg PO DAILY 03/03/20 03/03/20 - Allergies Allergies/Adverse Reactions: Allergies Allergy/AdvReac Type Severity Reaction Status Date / Time cephalexin [From Keflex] Allergy Rash Verified 03/03/20 09:30 Penicillins Allergy Rash Verified 03/03/20 09:30 - Social History Does the pt smoke?: No Smoking Status: Former smoker Does the pt drink ETOH?: Yes Does the pt have substance abuse?: No - Immunizations Immunizations are current?: Yes - POLST Patient has POLST: No PD ED PE NORMAL - Vitals Vital signs reviewed: Yes (hypertensive) - General General: No acute distress, Well developed/nourished - HEENT HEENT: Atraumatic, PERRL, EOMI, Other (There is bleeding from our box plexus bilaterally worse on the left than the right. The bleeding from the left appears to be further posterior and there is more of it.) - Neck Neck: Supple, no meningeal sign, No bony TTP - Respiratory Respiratory: No respiratory distress - Derm Derm: Normal color, Warm and dry, No rash - Extremities Extremities: No deformity, No edema - Neuro Neuro: Alert and oriented X 3, car builder 2-12 intact, No motor deficit, No sensory deficit, Normal speech Eye Opening: Spontaneous Motor: Obeys Commands Verbal: Oriented GCS Score: 15 - Psych Psych: Normal mood, Normal affect Results - Vitals Vitals: Vital Signs - 24 hr 03/03/20 03/03/20 03/03/20 09:30 09:41 11:30 Temperature 36.2 C L Heart Rate 76 78 73 Respiratory 18 18 18 Rate Blood Pressure 140/66 H 139/84 H 127/67 O2 Saturation 100 98 95 Oxygen O2 Source Room air Procedures - Epistaxis Site: Both Preparation: Clots removed, Afrin, Other (let) Treatment: Silver Nitrate, Packing inserted Other: Pt tolerated well, Other (will return tomorrow for removal of packing) PD MEDICAL DECISION MAKING - ED course Complexity details: considered differential, d/w patient ED course: 74-year-old peritoneal dialysis patient not on anticoagulation with epistaxis has poor control bleeding on the left side with the use of silver nitrate and a Merocel packing is placed in in the into the left nares. Clots are cleared the patient tolerates painful manipulations. She will return tomorrow for packing removal. Departure - Departure Disposition: 01 Home, Self Care Clinical Impression: Epistaxis Condition: Stable Instructions: ED Nosebleed Follow-Up: Joselito Pastrana MD [Physician No Access] -
[2020-03-03 12:05] VITALS: BP 130/101
== END 2020-03-03 12:34 | disposition home or self-care (01) ==
LOC: ED 09:28
DX: R04.0 Epistaxis (principal); I10 Essential (primary) hypertension; N28.9 Disorder of kidney and ureter, unspecified; Z99.2 Dependence on renal dialysis; Z87.891 Personal history of nicotine dependence
CPT/HCPCS: 30901; 99282; 99284; A9270

== ENCOUNTER 2020-03-04 10:17 | Emergency (ER) | payer MEDICARE, OTHER ==
--- NOTE | 2020-03-04 10:33 | ED Physician Documentation ---
PD HPI HEENT - Stated complaint Stated Complaint: FOLLOW UP - Chief complaint Chief Complaint: Heent - History obtained from History obtained from: Patient - History of Present Illness Timing - onset: Yesterday Timing - duration: Days (1) Timing - details: Abrupt onset, Now resolved Location: Nose Improves: Other (clamping and packing) Associated symptoms: Congestion. No: Fever Similar symptoms before: Diagnosis (epistaxis) Recently seen: Emergency Dept - Additional information Additional information: 74-year-old female who is not on anticoagulation has developed a nosebleed from both nares. She was seen in the emergency department yesterday and was treated with Afrin followed by packing with let and silver nitrate cautery. This worked on the right side but it did not work on the left side and we required a packing. This was placed yesterday with improvement in her bleeding she had a bit of a rough night last night not sleeping well not breathing through her nose very well. 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 : Dialysis, Renal insuffiency HEENT: None Psych: None Musculoskeletal: None Derm: None - Past Surgical History Past Surgical History: Yes /SENIOR QUALITY ASSURANCE ANALYST: Other - Present Medications Home Medications: Ambulatory Orders Medication Instructions Recorded Confirmed Albuterol Sulfate [Ventolin Hfa] 2 puffs INH Q4-6H PRN 07/17/13 03/04/20 Fexofenadine HCl [Yolanda Allergy] 180 mg PO DAILY PRN 07/17/13 03/04/20 Pravastatin Sodium 40 mg PO HS 07/17/13 03/04/20 calcitrioL [Rocaltrol] 0.5 mcg PO DAILY 07/17/13 03/04/20 Metoprolol Succinate 25 mg PO BID 04/23/18 03/04/20 Furosemide [Lasix] 1 tab PO DAILY 05/20/18 03/04/20 Losartan Potassium [Cozaar] 100 mg PO DAILY 03/03/20 03/04/20 Promethazine [Phenergan] 12.5 mg PO Q6H PRN 03/03/20 03/04/20 amLODIPine [Norvasc] 5 mg PO DAILY 03/03/20 03/04/20 - Allergies Allergies/Adverse Reactions: Allergies Allergy/AdvReac Type Severity Reaction Status Date / Time cephalexin [From Keflex] Allergy Rash Verified 03/04/20 10:22 Penicillins Allergy Rash Verified 03/04/20 10:22 - Social History Does the pt smoke?: No Smoking Status: Former smoker Does the pt drink ETOH?: Yes Does the pt have substance abuse?: No - Immunizations Immunizations are current?: Yes - POLST Patient has POLST: No PD ED PE NORMAL - Vitals Vital signs reviewed: Yes (Hypertensive mild) - General General: Alert and oriented X 3, No acute distress, Well developed/nourished - HEENT HEENT: Atraumatic, PERRL, EOMI, Other (After removal of the Merocel packing there is oozing of blood from the our box plexus. The nose is clamped.) - Respiratory Respiratory: No respiratory distress - Derm Derm: Normal color, Warm and dry, No rash - Extremities Extremities: No deformity, No edema - Neuro Neuro: Alert and oriented X 3, coin box collector 2-12 intact, No motor deficit, No sensory deficit, Normal speech Eye Opening: Spontaneous Motor: Obeys Commands Verbal: Oriented GCS Score: 15 - Psych Psych: Normal mood, Normal affect Results - Vitals Vitals: Vital Signs - 24 hr 03/04/20 10:22 Temperature 36 C L Heart Rate 76 Respiratory 18 Rate Blood Pressure 133/81 H O2 Saturation 96 Oxygen O2 Source Room air PD MEDICAL DECISION MAKING - ED course Complexity details: re-evaluated patient, considered differential, d/w patient ED course: 74-year-old with acute epistaxis has her packing removed today following that there is some oozing of blood in the nose is clamped. Despite clamping there is still oozing. We are able to get a large clot out and after additional afrin she is bleeding less and less and would like to go home and use the clamp and afrin if needed rather than re-packing the nose. Departure - Departure Disposition: 01 Home, Self Care Clinical Impression: Epistaxis Condition: Stable Instructions: ED Nosebleed Follow-Up: Joselito Pastrana MD [Physician No Access] -
[2020-03-04] MEDS ORDERED: OXYMETAZOLINE HCL 100 SPRAYS BOTTLE NAS STA (11:51)
[2020-03-04 13:52] VITALS: BP 142/68
== END 2020-03-04 13:52 | disposition home or self-care (01) ==
LOC: ED 10:17
DX: R04.0 Epistaxis (principal); I10 Essential (primary) hypertension; N28.9 Disorder of kidney and ureter, unspecified; Z99.2 Dependence on renal dialysis; Z87.891 Personal history of nicotine dependence
CPT/HCPCS: 99282; A9270

== ENCOUNTER 2020-04-16 09:13 | Outpatient (CLI) | payer MEDICARE, OTHER | END 2020-04-16 09:14 | disposition home or self-care (01) | LOC: DI 09:13 | PROVIDERS: ATTEND Internal Medicine Cardiovascular Disease | DX: I50.9 Heart failure, unspecified (principal) | CPT/HCPCS: 93306 ==

== ENCOUNTER 2020-05-07 13:55 | Outpatient (CLI) | payer MEDICARE, OTHER ==
--- NOTE | 2020-05-07 17:18 | XRAY Report ---
PROCEDURE: Hips 2V BILAT INDICATIONS: OSTEOARTHRITIS TECHNIQUE: 2 views of the bilateral hips were acquired. COMPARISON: FINDINGS: Bones: No fractures or dislocations. No suspicious bony lesions. The visualized pelvic ring appear s intact. Soft tissues: No suspicious soft tissue calcifications or masses. IMPRESSION: Symmetric moderate hip joint degenerative osteoarthritis. No prior trauma. Atherosclerotic vascular calcifications are relatively prominent in this patient, and note also is ma de of what appears to be a vascular stent at the superficial femoral artery area on the left. Reviewed by: Jayson Dimas MD on 05/07/2020 5:17 PM PST Approved by: Jayson Dimas MD on 05/07/2020 5:17 PM PST Station ID: [id number]
--- NOTE | 2020-05-07 17:20 | XRAY Report ---
PROCEDURE: Knee 3 View BILAT INDICATIONS: OSTEOARTHRITIS TECHNIQUE: 3 views of the bilateral knee(s) were acquired. COMPARISON: None. FINDINGS: Bones: No fractures or dislocations, but there is a moderate degree of narrowing of the medial and l ateral compartment interspaces at each knee, with what appears to be a vascular stent crossing the do rsal to the distal femur and entering the popliteal region of the left knee.. No suspicious bony les ions. Soft tissues: No joint effusion. No suspicious soft tissue calcifications. IMPRESSION: No prior or recent trauma found. Moderate knee joint osteoarthritis at the medial and la teral compartments are symmetric bilaterally and the degenerative change at the patellofemoral joint also is moderate at each lateral facet. Reviewed by: Jayson Dimas MD on 05/07/2020 5:[address] [facility] Approved by: Jayson Dimas MD on 05/07/2020 5:[address] [facility] Station ID: [id number]
== END 2020-05-07 13:56 | disposition home or self-care (01) ==
LOC: DI 13:55
PROVIDERS: ATTEND Internal Medicine Nephrology
DX: M16.0 Bilateral primary osteoarthritis of hip (principal); M17.0 Bilateral primary osteoarthritis of knee